=== PATIENT | female | born 1965 | race Two or more races ===

== ENCOUNTER 2022-08-01 23:08 | Emergency (ER) | payer OTHER ==
--- OUTSIDE RECORDS SUMMARY | 2022-08-01 23:13 | XMS REPORT | Continuity of Care Document ---
:1965 Author Organization [facility] t Address [address] [place] [address] Care Team Providers Name Role Phone TAYLOR VIDAL Primary Care Physician Unavailable TABITHA DE LEON Attending Clinician Unavailable Santosh Rosario MD Attending Clinician [phone] SANTOSH ROSARIO Attending Clinician Unavailable Taylor Vidal MD Attending Clinician Kelly Odom CMA Attending Clinician Unavailable TAYLOR VIDAL Attending Clinician Unavailable CORRIE SALEEM Attending Clinician Unavailable SHANNAN YU Attending Clinician Unavailable Stiven SMITH, Corrie Arvizu Attending Clinician [phone] Nitesh Adams Attending Clinician Nitesh Adams Admitting Clinician Payers Payer Name Policy Type Policy Number Effective Date Expiration Date Gordon blackmon [facility] [id number] 2020 00:00:00 SELECT/SELECT PLUS Problems Condition Condition Condition Status Onset Resolution Last Treating Co mments Source Name Details Category Date Date Treatment Clinician Date Primary Primary Disease Active 2021-[address] [facility] Center Type 2 Type 2 Disease Active 2021-06 BRIANNA Moore diabetes diabetes 2-08 [facility] mellitus mellitus 00:00: Medica l without without 00 Center complicati complicati on, on, without without long-term long-term current current use of use of insulin insulin Essential Essential Disease Active 2021-[address] [facility] hypertensi hypertensi 2-08 Kristina kes on on 00:00: Medical 00 [place] Acquired Acquired Disease Active 2021-[facility] hypothyroi hypothyroi 2- Kristina kes dism dism 00:00: Medical 00 [place] PAIN PAIN Diagnosis Active 2014-11-13 Mem oria Active 10-23 14:43:00 l 10/23/2014 00:00: Wang driver [address] Allergies, Adverse Reactions, Alerts Allergy Allergy Status Severity Reaction(s) Onset Inactive Treating Comm ents Source Name Type Date Date Clinician NO KNOWN Allergy Active [facility] Family History Family Member Diagnosis Comments Start Date Stop Date Source Natural brother Hyperlipidemia [facility] Natural brother Hypertension [facility] Natural daughter Diabetes [facility] Natural father Hyperlipidemia [facility] Natural father Hypertension [facility] Natural mother Hyperlipidemia [facility] Natural mother Hypertension [facility] Natural mother Liver disease [facility] Natural sister Diabetes [facility] Natural sister Hyperlipidemia [facility] Natural sister Hypertension [facility] Social History Social Habit Start Date Stop Date Quantity Comments Source Alcohol intake 2022-07-14 2022-07-14 Current [facility] 00:00:00 00:00:00 non-drinker of Medical Ce nter alcohol (finding) Sex Ass[birth year] At [birth year] F [facility] 00:00:00 00:00:00 [facility] Smoking Status Start Date Stop Date Source Social History [facility] Medications Ordered Filled Start Stop Current Ordering Indication Dosage Frequency Signature Comments Components Source Medication Medication Date Date Medication? Clinician (SIG) Name Name levothyroxi Yes TAKE [address] [facility] ne 1-26 TABLET BY Sri (SYNTHROID, 00:00: MOUTH Medic al LEVOTHROID) 00 EVERY Center 25 MCG MORNING ON tablet AN EMPTY STOMACH FOR 30 DAYS. pravastatin Yes 10mg QD Take [address] [facility] (PRAVACHOL) 1-11 tablet (10 Kristina kes 10 MG 00:00: mg total) Medical tablet 00 by mouth Center daily. pravastatin 2021-[address] [facility] (PRAVACHOL) 08-17-11 TABLET BY Kristina kes 10 MG 00:00: 00:00 MOUTH Medical tablet 00 :00 EVERY DAY Center metoprolol 2021-06- No [address] succinate 07-29 [facility] (TOPROL-XL) 16:32: 00:00 Medic al 25 MG 24 hr 09 :00 Center tablet pravastatin 2021-06- No 20mg QD Take [address] [facility] (PravachoL) 07-29 by mouth Stef es 20 MG 15:48: 00:00 daily. Medical tablet 57 :00 Center amitriptyli 2021-06- Yes 25mg QD Take [address] [facility] (ELAVIL) 07-29- tablet (25 L ukes 25 MG 00:00: 23:59 mg total) Medica l tablet 00 :00 by mouth Center nightly for 90 days. metoprolol 2021-06- Yes 25mg QD Take [address] [facility] succinate 07-29- tablet (25 Stef es (TOPROL-XL) 00:00: 23:59 mg total) Medical 25 MG 24 hr 00 :00 by mouth Cent er tablet daily for 90 days. metFORMIN 2021-06- Yes 500mg Take [address] [facility] (GLUCOPHAGE 07-29 tablet [facility] -XR) 500 MG 00:00: 23:59 (500 mg Me dical 24 hr 00 :00 total) by Center tablet mouth daily with dinner for 90 days. levothyroxi 2021-06- No 25ug Take [address] [facility] ne 07-29 tablet (25 [facility] (SYNTHROID, 00:00: 00:00 mcg total) Medical LEVOTHROID) 00 :00 by mouth Cent er 25 MCG Every tablet morning on an empty stomach for 90 days. pravastatin 2021-06- No 10mg QD Take [address] [facility] (PRAVACHOL) 07-29 tablet (10 L ukes 10 MG 00:00: 00:00 mg total) Medica l tablet 00 :00 by mouth Center daily for 90 days. amitriptyli 2021- No TAKE [address] [facility] ne (ELAVIL) 8-04 06- TABLET BY Kristina kes 25 MG 00:00: 00:00 MOUTH Medical tablet 00 :00 NIGHTLY Center FOR 30 DAYS. levothyroxi 2021- No TAKE [address] [facility] ne 7-25 12-08 TABLET BY Sri (SYNTHROID, 00:00: 00:00 MOUTH Medi jose LEVOTHROID) 00 :00 EVERY Center 25 MCG MORNING ON tablet AN EMPTY STOMACH FOR 30 DAYS. pravastatin 2021-2021- No TAKE [address] [facility] (PRAVACHOL) 7-21 12-08 TABLET BY Kristina chávezs 10 MG 00:00: 00:00 MOUTH Medical tablet 00 :00 EVERY DAY Center Moderna Yes 0.[address] [facility] [address] COVID-19 7-06 [facility] Vaccine, 08:51: Medical EUA, 22 Center (Moderna COVID-19 Vaccine, PF,) 100 mcg/0.5 mL Susp syringe melatonin Yes 6mg Take [address] [facility] (Mel[place]) 3 7-06 by mouth. Stef es mg Tab 08:49: Medical tablet 22 Center levothyroxi 2021- No TAKE [address] [facility] ne 6-17 07-25 TABLET BY Sri (SYNTHROID, 00:00: 00:00 MOUTH Medi jose LEVOTHROID) 00 :00 EVERY Center 25 MCG MORNING ON tablet AN EMPTY STOMACH FOR 30 DAYS. metFORMIN 2021- No 500mg Take [address] (GLUCOPHAGE 5-11 12-08 mg by Sri -XR) 500 MG 00:00: 00:00 mouth Medi jose 24 hr 00 :00 daily with Center tablet dinner. amitriptyli 2021- No 25mg QD Take [address] [facility] ne (ELAVIL) 4-20 08-15 tablet (25 L ukes 25 MG 00:00: 00:00 mg total) Medica l tablet 00 :00 by mouth Center nightly for 30 days. metFORMIN 2021- No 500mg Take [address] (GLUCOPHAGE 3-22 03-22 mg by Kristinakes ) 500 MG 16:23: 00:00 mouth 2 Medic al tablet 22 :00 (two) Center times daily with breakfast and dinner. pravastatin 2021-2021- No 10mg QD Take [address] [facility] (PRAVACHOL) 3-22 03-22 by mouth Stef es 10 MG 16:23: 00:00 daily. Medical tablet 22 :00 Center metoprolol 2021- No 25mg QD Take [address] [address] succinate 09-09-22 by mouth [facility]ukes (TOPROL-XL) 16:23: 00:00 daily. Med ical 25 MG 24 hr 22 :00 Center tablet pravastatin 2021- No 10mg QD Take [address] [facility] (PRAVACHOL) 09-09 07-21 tablet (10 L ukes 10 MG 00:00: 00:00 mg total) Medica l tablet 00 :00 by mouth Center daily for 90 days. metFORMIN 2021- No 500mg Take [address] [facility] (GLUCOPHAGE 09-09 06-20 tablet [facility]ukes ) 500 MG 00:00: 23:59 (500 mg Medic al tablet 00 :00 total) by Center mouth 2 (two) times daily with breakfast and dinner for 90 days. metoprolol 2021- No 25mg QD Take [address] [facility] succinate 09-09-20 tablet (25 Stef es (TOPROL-XL) 00:00: 23:59 mg total) Medical 25 MG 24 hr 00 :00 by mouth Cent er tablet daily for 90 days. levothyroxi 2021- No 25ug Take [address] [facility] ne 09-09-21 tablet (25 [facility] (Synthroid) 00:00: 23:59 mcg total) Medical 25 MCG 00 :00 by mouth Center tablet Every morning on an empty stomach for 30 days. amitriptyli 2021- No 25mg QD Take [address] [facility] ne (ELAVIL) 09-09 04-20 tablet (25 L ukes 25 MG 00:00: 00:00 mg total) Medica l tablet 00 :00 by mouth Center nightly for 30 days. Ibuprofen No Notes: Memori a 5-23 (Same as: l 03:12: Motrin) Wilbert 00 "Do Not Crush" Take with food. Ibuprofen No Notes: Memori a 5-23 (Same as: l 03:12: Motrin) Howell 00 "Do Not Crush" Take with food. Cefoxitin Yes Notes: Memori a 20 MG/ML - (Same As: l Injectable 17:00: Mefoxin) Her carter Solution 00 MEDICATION WASTE Product Size: 2000 mg Product Wasted: ___ mg Ketorolac No 4 days Memor ia 11-09 l 17:00: MEDICATION Howell 00 WASTE Product Size: 30 mg Product Wasted: ___ mg Cefoxitin Yes Notes: Memori a 20 MG/ML 11-09 (Same As: l Injectable 17:00: Mefoxin) Her carter Solution 00 MEDICATION WASTE Product Size: 2000 mg Product Wasted: ___ mg Ketorolac No 4 days Memor ia 11-09 l 17:00: MEDICATION Howell WASTE Product Size: 30 mg Product Wasted: ___ mg Morphine No Notes: Memoria 11-09 (Same l 16:02: as:MORPhin e Sulfate) Lorazepam No Notes: Memori a 11-09 (Same as: l 16:02: Ativan) Diphenhydra No Notes: Deonte kendall mine 11-09 (Same as: l 16:02: Benadryl) Racepinephr No Notes: Deonte kendall ine 11-09 (racepinep l 16:02: hrine *2.25% inh 0.5ml SOLN) (Same as:S2) Naloxone No Notes: Memoria 11-09 Same as l 16:02: Narcan Glycopyrrol No Notes: Deonte kendall ate 11-09 (Same as: l 16:02: Robinul) Dexamethaso No Notes: Deonte kendall ne 11-09 Concentrat l 16:02: ion: Howell 00 4mg/ml Ondansetron No Notes: Deonte kendall - (Same as: l 16:02: Zofran) MEDICATION WASTE Product Size: 4 mg Product Wasted: ___ mg Promethazin No 6.25 mg, Me moria e 11-09 25 mL, l 16:02: Route: 00 IVPB, Drug form: SOLN, ONCE, Dosing Weight 70, kg, PRN Nausea & Vomiting, Start date: 11/09/14 11:02:00 Albuterol No Notes: SEE Me moria 0.83 MG/ML 11-09 RT l Inhalant 16:02: DOCUMENTAT Her carter Solution 00 ION (Same as: Proventil) Ephedrine No Notes: Memori a - (Same as: l 16:02: ePHEDrine Sulfate) Calcium No 500 mL, Memoria Chloride 11-09 Rate: 125 l 0.0014 16:02: ml/hr, Howell MEQ/ML / Infuse Potassium over: 4 Chloride hr, Route: 0.004 IV, Dosing MEQ/ML / Weight 70 Sodium kg, Total Chloride Volume: 0.103 500, Start MEQ/ML / date: Sodium 11/09/14 Lactate 11:02:00, 0.028 Duration: MEQ/ML 30 day, Injectable Stop date: Solution 12/09/14 11:01:00 Fentanyl No Notes: Memoria 11-09 (Same as: l 16:02: Sublimaze) Preservati ve free. Oxycodone No Notes: Memori a 11-09 (Same as: l 16:02: Roxicodone ) Acetaminoph No Notes: Deonte kendall en 11-09 Infuse l 16:02: over 15 minutes Do not exceed 4gm/day of acetaminop hen MEDICATION WASTE Product Size: 1000 mg Product Wasted: ___ mg Labetalol No 10 mg, 2 Deonte kendall -22 mL, Route: l 16:02: IVP, Drug form: INJ, Q5Min, Dosing Weight 70, kg, PRN Elevated BP, Start date: 11/09/14 11:02:00, Duration: 5 doses or times, Stop date: Limited # of times esmolol No Notes: Memoria 11-09 (Same as: l 16:02: Brevibloc) Hydralazine No Notes: Deonte kendall -22 (Same as: l 16:02: Apresoline ) Push over 5 minutes Hydromorpho No Notes: Deonte kendall ne 5-22 Same as: l 16:02: Dilaudid Flumazenil No Notes: Memor ia - (Same as: l 16:02: Romazicon) Morphine No Notes: Memoria 5- (Same l 16:02: as:MORPhin Howell 00 e Sulfate) Lorazepam No Notes: Memori a -22 (Same as: l 16:02: Ativan) Diphenhydra No Notes: Deonte kendall mine - (Same as: l 16:02: Benadryl) Racepinephr No Notes: Deonte kendall ine 11-09 (racepinep l 16:02: hrine Wilbert 00 *2.25% inh 0.5ml SOLN) (Same as:S2) Naloxone No Notes: Memoria - Same as l 16:02: Narcan Glycopyrrol No Notes: Deonte kendall ate - (Same as: l 16:02: Robinul) Dexamethaso No Notes: Deonte kendall ne - Concentrat l 16:02: ion: 00 4mg/ml Ondansetron No Notes: Deonte kendall - (Same as: l 16:02: Zofran) MEDICATION WASTE Product Size: 4 mg Product Wasted: ___ mg Promethazin No 6.25 mg, Me moria e -22 25 mL, l 16:02: Route: Wilbert 00 IVPB, Drug form: SOLN, ONCE, Dosing Weight 70, kg, PRN Nausea & Vomiting, Start date: 11/09/14 11:02:00 Albuterol No Notes: SEE Me moria 0.83 MG/ML - RT l Inhalant 16:02: DOCUMENTAT Her carter Solution 00 ION (Same as: Proventil) Ephedrine No Notes: Memori a -22 (Same as: l 16:02: ePHEDrine Wilbert 00 Sulfate) Calcium No 500 mL, Memoria Chloride 11-09 Rate: 125 l 0.0014 16:02: ml/hr, Howell MEQ/ML / 00 Infuse Potassium over: 4 Chloride hr, Route: 0.004 IV, Dosing MEQ/ML / Weight 70 Sodium kg, Total Chloride Volume: 0.103 500, Start MEQ/ML / date: Sodium 11/09/14 Lactate 11:02:00, 0.028 Duration: MEQ/ML 30 day, Injectable Stop date: Solution 12/09/14 11:01:00 Fentanyl No Notes: Memoria - (Same as: l 16:02: Sublimaze) Preservati ve free. Oxycodone No Notes: Memori a - (Same as: l 16:02: Roxicodone ) Acetaminoph No Notes: Deonte kendall en - Infuse l 16:02: over 15 Howell 00 minutes Do not exceed 4gm/day of acetaminop hen MEDICATION WASTE Product Size: 1000 mg Product Wasted: ___ mg Labetalol No 10 mg, 2 Deonte kendall -22 mL, Route: l 16:02: IVP, Drug form: INJ, Q5Min, Dosing Weight 70, kg, PRN Elevated BP, Start date: 11/09/14 11:02:00, Duration: 5 doses or times, Stop date: Limited # of times esmolol No Notes: Memoria - (Same as: l 16:02: Brevibloc) Hydralazine No Notes: Deonte kendall -22 (Same as: l 16:02: Apresoline ) Push over 5 minutes Hydromorpho No Notes: Deonte kendall ne -22 Same as: l 16:02: Dilaudid Flumazenil No Notes: Memor ia -22 (Same as: l 16:02: Romazicon) Ondansetron Yes 4 mg = 1 Me moria 4 MG Oral 5-22 tab, PO, l Tablet 15:54: Q6H, PRN Wilbert [Zofran] 00 as needed for nausea/vom iting, # 6 tab, 4 Refill(s), other Acetaminoph Yes 1 to 2 Deonte kendall en 325 MG / 5-22 tabs, PO, l Oxycodone 15:54: Q4H, PRN Herm dionne Hydrochlori 00 as needed de 5 MG for pain, Oral Tablet # 40 tab, [Percocet 0 5/325] Refill(s), other Ondansetron Yes 4 mg = 1 Me moria 4 MG Oral 5-22 tab, PO, l Tablet 15:54: Q6H, PRN Wilbert [Zofran] 00 as needed for nausea/vom iting, # 6 tab, 4 Refill(s), other Acetaminoph Yes 1 to 2 Deonte kendall en 325 MG / 5-22 tabs, PO, l Oxycodone 15:54: Q4H, PRN Herm dionne Hydrochlori 00 as needed de 5 MG for pain, Oral Tablet # 40 tab, [Percocet 0 5/325] Refill(s), other Acetaminoph No Notes: Do M emoria en 325 MG / 5-22 not exceed l Oxycodone 15:52: 4gm/day of He rmann Hydrochlori 00 acetaminop de 5 MG hen. (Same Oral Tablet as: [Percocet Percocet-5 5/325] /325) Ondansetron No Notes: Deonte kendall 4 MG 5-22 (Same as: l Disintegrat 15:52: Zofran Herm dionne ing Tablet 00 ODT) Promethazin No Notes: Deonte kendall e 5-22 (Same as: l 15:52: Phenergan) Howell 00 Ondansetron No Notes: Deonte kendall 5-22 (Same as: l 15:52: Zofran) Howell 00 MEDICATION WASTE Product Size: 4 mg Product Wasted: ___ mg Morphine No Notes: Memoria 5-22 (Same l 15:52: as:MORPhin Howell 00 e Sulfate) Calcium No 1,000 mL, Memor ia Chloride 5-22 Rate: 125 l 0.002 15:52: ml/hr, Wilbert MEQ/ML / 00 Infuse Glucose 50 over: 8 MG/ML / hr, Route: Potassium IV, Dosing Chloride Weight 70 0.004 kg, Total MEQ/ML / Volume: Sodium 1,000, Chloride Start 0.147 date: MEQ/ML 11/09/14 Injectable 10:52:00, Solution Duration: 30 day, Stop date: 12/09/14 10:51:00 Acetaminoph No Notes: Do M emoria en 325 MG / 5-22 not exceed l Oxycodone 15:52: 4gm/day of He rmann Hydrochlori 00 acetaminop de 5 MG hen. (Same Oral Tablet as: [Percocet Percocet-5 5/325] /325) Ondansetron No Notes: Deonte knedall 4 MG 5-22 (Same as: l Disintegrat 15:52: Zofran Herm dionne ing Tablet 00 ODT) Promethazin No Notes: Deonte kendall e 5-22 (Same as: l 15:52: Phenergan) Wilbert 00 Ondansetron No Notes: Deonte kendall 5-22 (Same as: l 15:52: Zofran) Howell 00 MEDICATION WASTE Product Size: 4 mg Product Wasted: ___ mg Morphine No Notes: Memoria 5-22 (Same l 15:52: as:MORPhin Wilbert 00 e Sulfate) Calcium No 1,000 mL, Memor ia Chloride 5-22 Rate: 125 l 0.002 15:52: ml/hr, Wilbert MEQ/ML / 00 Infuse Glucose 50 over: 8 MG/ML / hr, Route: Potassium IV, Dosing Chloride Weight 70 0.004 kg, Total MEQ/ML / Volume: Sodium 1,000, Chloride Start 0.147 date: MEQ/ML 11/09/14 Injectable 10:52:00, Solution Duration: 30 day, Stop date: 12/09/14 10:51:00 Lactated No 500 mL, Memori a Ringers IV 5-22 Rate: 50 l 500 mL 12:20: ml/hr, Wilbert 00 Infuse over: 10 hr, Route: IV, Dosing Weight 70 kg, Total Volume: 500, Start date: 11/09/14 7:20:00, Duration: 30 day, Stop date: 12/09/14 7:19:00 lidocaine No Notes: Memori a 1% 5-22 (Same as: l 12:20: Xylocaine) Lactated No 500 mL, Memori a Ringers IV 5-22 Rate: 50 l 500 mL 12:20: ml/hr, Infuse over: 10 hr, Route: IV, Dosing Weight 70 kg, Total Volume: 500, Start date: 11/09/14 7:20:00, Duration: 30 day, Stop date: 12/09/14 7:19:00 lidocaine No Notes: Memori a 1% 5-22 (Same as: l 12:20: Xylocaine) Pyridium No Notes: Memoria 5-18 Give with l 17:30: meals. (Same as: Pyridium) Pyridium No Notes: Memoria 5-18 Give with l 17:30: meals. (Same as: Pyridium) Immunizations Ordered Immunization Filled Immunization Date Status Commen ts Source Name Name Influenza, High Dose 2022-02-[address] [facility] [facility] MRNA (PF) 18yr+ 00:00:00 Medical C enter (Moderna)([id number]) Influenza, High Dose 2021-04-[address] [facility] 2020-10-[address] [facility] MRNA (PF) 18yr+ 00:00:00 [facility] C [facility]Modern[facility][id number][facility] [facility] MRNA (PF) 18yr+ 00:00:00 Medical C enter (Moderna)([id number]) Vital Signs Vital Name Observation Time Observation Value Comments Source HEIGHT 2022-07-14 16:16:00 157.5 cm WEIGHT 2022-07-14 16:16:00 71.215 kg HEIGHT 2022-07-14 16:16:00 157.5 cm WEIGHT 2022-07-14 16:16:00 71.215 kg HEIGHT 2022-05-28 15:50:00 157.5 cm WEIGHT 2022-05-28 15:50:00 72.122 kg HEIGHT 2022-05-28 15:50:00 157.5 cm WEIGHT 2022-05-28 15:50:00 72.122 kg HEIGHT 2021-12-24 08:48:00 157.5 cm WEIGHT 2021-12-24 08:48:00 76.658 kg HEIGHT 2021-12-24 08:48:00 157.5 cm WEIGHT 2021-12-24 08:48:00 76.658 kg HEIGHT 2021-09-09 14:51:00 157.5 cm WEIGHT 2021-09-09 14:51:00 76.658 kg HEIGHT 2021-09-09 14:51:00 157.5 cm WEIGHT 2021-09-09 14:51:00 76.658 kg HEIGHT 2021-08-28 15:21:00 157.5 cm WEIGHT 2021-08-28 15:21:00 75.297 kg HEIGHT 2021-08-28 15:21:00 157.5 cm WEIGHT 2021-08-28 15:21:00 75.297 kg Systolic blood 2022-07-14 16:16:00 131 mm[Hg] [facility] Diastolic blood 2022-07-14 16:16:00 84 mm[Hg] [facility] Heart rate 2022-07-14 16:16:00 57 /min [facility] Body temperature 2022-07-14 16:16:00 36.78 [facility] Body height 2022-07-14 16:16:00 157.5 cm [facility] Body weight 2022-07-14 16:16:00 71.215 kg [facility] BMI 2022-07-14 16:16:00 28.72 kg/m2 [facility] Oxygen saturation in 2022-07-14 16:16:00 98 /min [facility] Arterial blood by Medical Ce nter Pulse oximetry Systolic (mm Hg) 2014-11-10 13:00:00 Deonte Atkins Diastolic (mm Hg) 2014-11-10 13:00:00 Nalini Atkins Respitory Rate 2014-11-10 13:00:00 Luanne Holder Heart Rate 2014-11-10 13:00:[facility] Oral (F) 2014-11-10 13:00:00 98.6 F [facility] Heart Rate 2014-11-10 08:50:00 [facility] Systolic (mm Hg) 2014-11-10 08:50:00 Deonte rial Wilbert Diastolic (mm Hg) 2014-11-10 08:50:00 Mem orial Howell Temperature Oral (F) 2014-11-10 08:50:00 98.0 F [facility] Respitory Rate 2014-11-10 08:50:00 Memori al Wilbert Systolic (mm Hg) 2014-11-10 04:40:00 Deonte rial Wilbert Diastolic (mm Hg) 2014-11-10 04:40:00 Mem orial Wilbert Respitory Rate 2014-11-10 04:40:00 Memori al Howell Heart Rate 2014-11-10 04:40:00 [facility] Temperature Oral (F) 2014-11-10 04:40:00 98.6 F [facility] Weight 2014-11-05 16:52:00 [facility] Height 2014-11-05 16:52:00 160.02 cm [facility] BMI Calculated 2014-11-05 16:52:00 [facility] Procedures Procedure Date / Time Performing Clinician Source Performed MM DIGITAL MAMMO 2022-07-29 14:40:00 Santosh Rosaroi [facility] s DIAGNOSTIC WITH SHAYE LEFT [facility] POCT GLUCOSE 2022-05-28 16:35:00 Taylor Vidal [facility] POCT GLYCATED HEMOGLOBIN, 2022-05-28 16:33:00 Taylor Vidal [facility] US BREAST LEFT 2022-01-22 11:11:00 Corrie Saleem [facility] MM DIGITAL MAMMO 2022-01-22 10:12:00 Corrie Saleem [facility]ST[facility] MM DIGITAL MAMMO SCREEN 2022-01-14 15:35:[address] [facility] WITH SHAYE BILATERAL [facility] er CBC W/PLT COUNT & AUTO 2021-09-04 09:13:[address] [facility] COMPREHENSIVE METABOLIC 2021-09-04 09:13:[address] [facility] PANEL [facility] LIPID PANEL 2021-09-04 09:13:00 Taylor Vidal [facility] HEMOGLOBIN A1C 2021-09-04 09:13:00 Taylor Vidal [facility] TSH 2021-09-04 09:13:00 Taylor Vidal [facility] Laparotomy 2008-06-21 00:00:00 [facility] Plan of Care Planned Activity Planned Date Details Comments Source Future Scheduled 2024-09-04 Lipid panel (procedure) [facility] Test 00:00:00 [code = [id number]] Medical Ce nter Future Scheduled 2024-07-29 Screening for malignant [facility] Test 00:00:00 neoplasm of breast Medical C enter (procedure) [code = 729957839] Future Scheduled 2023-07-[address] [facility] Test 00:00:00 Counseling and Medical Cente r Screening (12+) [code = Tobacco Cessation Counseling and Screening (12+)] Future Scheduled 2022-11-[address] [facility] Test 00:00:00 measurement (procedure) [facility] [code = 00432502] Future Scheduled 2022-06-[address] [facility] Test 00:00:00 (12+) [code = [facility] Center DEPRESSION SCREENING (12+)] Future Scheduled 2021-09-15 COVID-19 VACCINE (4 - [facility] Test 00:00:00 Booster for [facility] Center series) [code = COVID-19 VACCINE (4 - Booster for [facility] series)] Future Scheduled 2013-12-09 SHINGLES VACCINES ([address] [facility] Test 00:00:00 2) [code = SHINGLES [facility] VACCINES (1 of 2)] Future Scheduled 1984-12-09 Screening for malignant [facility] Test 00:00:00 neoplasm of cervix Medical C enter (procedure) [code = 976845174] Future Scheduled 1982-12-09 DTAP/TDAP/TD VACCINES [facility] Test 00:00:00 (1 - Tdap) [code = Medical C enter DTAP/TDAP/TD VACCINES (1 - Tdap)] Future Scheduled 1981-12-09 HEPATITIS C SCREENING [facility] Test 00:00:00 [code = HEPATITIS C Medical Center SCREENING] Future Scheduled 1973-12-09 DIABETIC EYE EXAM [code [facility] Test 00:00:00 = DIABETIC EYE EXAM] Medical Center Future Scheduled 1973-12-[address] [facility] Test 00:00:00 examination Medical Center (regime/therapy) [code = 897992224] Future Scheduled 1973-12-09 Urine screening for [facility] Test 00:00:00 protein (procedure) Medical Center [code = [id number]] Future Scheduled 1969-12-[address] [facility] Test 00:00:00 0-64 YRS (1 - PCV) Medical C enter [code = PNEUMOCOCCAL VACCINE 0-64 YRS (1 - PCV)] Future Scheduled 1963 CT Colonography (combo) [facility] Test 00:00:00 [code = CT Colonography [facility] (combo)] Future Scheduled 1963 Screening for malignant [facility] Test 00:00:00 neoplasm of colon Medical Ce nter (procedure) [code = 974915603] Future Scheduled 1963 Screening for malignant [facility] Test 00:00:00 neoplasm of colon Medical Ce nter (procedure) [code = 391737078] Future Scheduled 1963 Screening for malignant [facility] Test 00:00:00 neoplasm of colon Medical Ce nter (procedure) [code = 740451273] Future Scheduled 1963 Screening for malignant [facility] Test 00:00:00 neoplasm of colon Medical Ce nter (procedure) [code = [id number]] Future Scheduled 1965 Sigmoidoscopy [code = [facility] 00:[facility]:00 Sigmoidoscopy] [facility] Encounters Start End Encounter Admission Attending Care Care Encounter Source Date/Time Date/Time Type Type Clinicians Facility Department ID 2021-01-06 Outpatient NITESH [facility] [id number] [place] 13:26:47 [facility] 2020-12-[address] [facility] [id number] [place] 15:36:42 [facility] 2022-07-29 2022-07-29 [facility] Marlene [facility] [id number] 14:28:47 23:59:[address] [facility] 2022-07-29 2022-07-29 Outpatient EL ROSARIO, [facility] [id number] [facility] 14:28:47 23:59:00 [facility] 2022-07-29 2022-07-29 Hospital Marlene, [facility] [id number] [facility] 14:28:27 23:59:[address] [facility] 2022-07-29 2022-07-29 Outpatient EL MARLENE, [facility] [id number] [facility] 14:28:27 23:59:00 [facility] 2022-07-28 2022-07-28 Outside Young, Taylor [facility] [id number] 00:00:00 00:00:00 Orders [facility] 2022-07-16 2022-07-16 RefTaylor Lay [facility] [id number] 00:00:00 00:00:00 [facility] 2022-07-15 2022-07-15 Orders Marlene, [facility] [id number] 00:00:00 00:00:[address] [facility] 2022-07-14 2022-07-14 Outpatient EL ROSARIO, [facility] [id number] 16:04:04 16:51:22 [facility] 2022-07-14 2022-07-14 Office Rosario, [facility] [id number] 15:30:00 16:51:[address] [facility] 2022-07-01 2022-07-01 Orders Odom, [facility] [id number] 00:00:00 00:00:[address] [facility] 2022-06-30 2022-06-30 Outpatient EL YOUNG, TAYLOR [facility] [id number] 00:00:00 00:00:00 [facility] 2022-06-16 2022-06-16 Refill Young, Taylor [facility] [id number] 00:00:00 00:00:00 [facility] 2022-05-28 2022-05-28 Office Young, Taylor [facility] [id number] 16:00:00 16:45:16 Visit [facility] 2022-05-28 2022-05-28 Outpatient SHIRIN VIDAL [facility]AYLOR [facility] [id number] 15:39:04 16:45:16 [facility] 2022-05-22 2022-05-22 Refmelvin Young, Taylor [facility] [id number] 00:00:00 00:00:00 [facility] 2022-05-06 2022-05-06 Refill Young, Taylor [facility] [id number] 00:00:00 00:00:00 [facility] 2022-04-14 2022-04-14 Refmelvin Vidal Taylor [facility] [id number] 00:00:00 00:00:00 [facility] 2022-03-25 2022-03-25 Outpatient SHIRIN SALEEM [facility] [id number] 00:00:00 00:00:00 [facility] 2022-03-04 2022-03-04 Outpatient SHIRIN ASLEEM [facility] [id number] [address] 00:00:00 00:00:00 [facility] 2022-02-25 2022-02-25 Outpatient SHIRIN YU [facility] [id number] 00:00:00 00:00:00 [facility] 2022-02-01 2022-02-01 Refmelvin Vidal Taylor [facility] [id number] 00:00:00 00:00:00 [facility] 2022-01-28 2022-01-28 Outpatient EL STIVEN [facility] [id number] 00:00:00 00:00:00 [facility] 2022-01-27 2022-01-27 Trini Saleem [facility] [id number] 00:00:00 00:00:00 [facility] [place] 2022-01-22 2022-01-22 [facility], [facility] [id number] 09:47:03 23:59:00 Encounter [facility] 2022-01-22 2022-01-22 Outpatient STIVEN, [facility] [id number] [facility] 09:47:03 23:59:00 [facility] 2022-01-22 2022-01-22 [facility] [id number] 09:45:45 09:46:00 Encounter [facility] 2022-01-22 2022-01-22 Outpatient SHIRIN SALEEM, [facility] [id number] [facility] 09:45:45 09:46:00 [facility] 2022-01-21 2022-01-21 Orders Stiven [facility] [id number] 00:00:00 00:00:00 Only [facility] [place] 2022-01-21 2022-01-21 [place] [facility] [id number] 00:00:00 00:00:00 [facility] [place] 2022-01-21 2022-01-21 [facility] [id number] 00:00:00 00:00:00 Orders [facility] [place] 2022-01-14 2022-01-14 [facility] [id number] 14:50:13 23:59:00 Encounter [facility] 2022-01-14 2022-01-14 Outpatient SHIRIN SALEEM [facility] [id number] [facility] 14:50:13 23:59:00 [place] 2022-01-13 2022-01-13 Outpatient SHIRIN YU [facility] [id number] 00:00:00 00:00:00 [facility] 2022-01-10 2022-01-10 Refill Young, Taylor [facility] [id number] 00:00:00 00:00:00 [facility] 2022-01-07 2022-01-07 Refill Young, Taylor [facility] [id number] 00:00:00 00:00:00 [facility] 2022-01-05 2022-01-05 Refill Young, Taylor [facility] [id number] 00:00:00 00:00:00 [facility] 2021-12-24 2021-12-24 Office Young, Taylor Leigh [facility] [id number] 09:00:00 09:28:47 Visit St[facility] 2021-12-24 2021-12-24 Outpatient EL SCHAKETT, [facility] [id number] 08:35:46 09:28:47 [facility] 2021-12-18 2021-12-18 Outpatient EL SCHAKETT, [facility] [id number] 00:00:00 00:00:00 [facility] 2021-11-12 2021-11-12 Outpatient EL SCHAKETT, [facility] [id number] 00:00:00 00:00:00 [facility] 2021-10-15 2021-10-15 Outpatient WHITKETT, [facility] [id number] 00:00:00 00:00:00 [facility] 2021-10-08 2021-10-08 Orders Lei [facility] [id number] 00:00:00 00:00:[address] [facility] 2021-09-09 2021-09-09 Outpatient TAYLOR VIDAL [facility] [id number] 14:40:27 16:36:10 [facility] 2021-09-09 2021-09-09 Office Taylor Vidal [facility] [id number] 14:40:00 16:36:10 Visit [facility] 2021-09-09 2021-09-09 Travel [facility] [id number] [facility] 00:00:00 00:00:00 [facility] 2021-08-28 2021-08-28 Outpatient YOUNG TAYLOR [facility] [id number] 15:05:00 16:25:39 [facility] 2021-08-28 2021-08-28 Office Taylor Vidal [facility] [id number] 15:00:00 16:25:39 Visit [facility] 2021-08-28 2021-08-28 Travel [facility] [id number] [facility] 00:00:00 00:00:00 [facility] 2014-11-09 2014-11-10 [id number] [facility] 17:23:00 15:00:00 Observatio juliocesar AuHowell The 00 l n Patient [facility] 2014-11-09 2014-11-10 [id number] 17:23:00 15:00:00 Observatio juliocesar Howell The 00 l n Patient [facility] 2014-11-09 2014-11-10 Outpatient Bryan, [id number]. [id number]. [id number] 12:23:00 10:00:00 Nitesh Sung [id number] 01 Results Test Description Test Time Test Comments Results Result Sour e Comments MM, DIGITAL MAMMO, 2022-07-29 Reason for DIAGNOSTIC, WITH 15:25:00 Exam:->abnormal SHAYE, LEFT mammogram [facility] INCLUDING CAD Location: For [facility] CENTERName: Only->JOSE FLOYD [place] : 1965 Sex: Hospital F MR N#: [id number] - MM, DIGITAL MAMMO, DIAGNOSTIC, WITH SHAYE, LEFT INCLUDING CAD UNILATERAL LEFT DIGITAL DIAGNOSTIC MAMMOGRAM 3D/2D WITH CAD: 07/29/2022omparison is made to exams dated: 01/14/2022 mammogram and 01/22/2022 mammogram - [facility]. The tissue of left breast is heterogeneously dense. This may lower the sensitivity of mammography. Tomosynthesis 3D imaging of the breast was also performed. Current study was also evaluated with a Computer Aided Detection (CAD) system. Postoperative changes in the left breast. There are loosely grouped layering and round calcifications in the left breast central to the nipple anterior to middle depth, measuring up to 6 cm, terminating 0.6 cm posterior to the nipple. IMPRESSION: PROBABLY BENIGN The calcifications in the left breast are probably benign. A follow-up bilateral diagnostic mammogram (with magnification views) and a possible ultrasound (if needed) in 5 months (due December 2022 at the time of annual exam) is recommended to demonstrate stability. Oneyda Hurst M.D. as/:07/29/2022 15:25:26 Followup Recommended [facility] 3 Mammogram BI-RADS: 3 Probably benign glucose 2022-05-28 16:35:00 Test Item Value Reference Range Interpretation Comme nts POC Glucose (test code = 1672842) 108 mg/dL 70-110 [facility] glycated hemoglobin, [id number] 16:33:00 Test Item Value Reference Range Interpretation Comments Hemoglobin A1C (test code = 4548-4) 6.6 % [facility], U/S, BREAST, UNILATERAL, [id number] 11:50:00 Diagnostic workup per radiologist?->YesReason for Exam:->[facility] : 1965 Sex: FMRN#: [id number] - MM, U/S, BREAST, UNILATERAL, LEFT LIMITED ULTRASOUND OF LEFT BREAST AND AXILLA: 01/22/2022omparison is made to exam dated: 01/14/2022 mammogram - [facility]. The tissue of left breast is heterogeneously dense. This may lower the sensitivity of mammography. Tomosynthesis 3D imaging of the breast was also performed. Current study was also evaluatedwith a Computer Aided Detection (CAD) system. Postoperative changes in the left breast. There are loosely grouped layering and round calcifications in the left breast central to the nipple anterior to middle depth, measuring up to 6 cm, terminating 0.6 cm posterior to the nipple. No other significant masses or calcifications are seen in the breast. Color flow and real-time ultrasound of the left breast (all four quadrants and retroareolar region) and axilla was performed. There is no suspicious solid or cystic mass identified. There are no abnormal appearing axilla lymph nodes. IMPRESSION: PROBABLYBENIGN The calcifications in the left breast are probably benign. A follow-up left diagnostic mammogram (magnification views) and a possible ultrasound (if needed) in 6 months is recommended to demonstrate stability. These findings and recommendations were discussed with the patient.Oneyda Hurst M.D. as/:01/22/2022 11:50:27 Milking Machine Operator: Karen Banks [facility] Ultrasound BI-RADS: 3 Probably benign [id number] Electronically signed by: Citlalli TAM 01/22/2022 11:50 AM MM, DIGITAL MAMMO, DIAGNOSTIC, WITH SHAYE, LEFT INCLUDING [id number] 11:49:00 Diagnostic workup per radiologist?->YesReason for Exam:->Abnormal [facility]ogram[facility] : 1965 Sex: FMRN#: [id number] - MM, DIGITAL MAMMO, DIAGNOSTIC, WITH SHAYE, LEFT INCLUDING CAD UNILATERAL LEFT DIGITAL DIAGNOSTIC MAMMOGRAM 3D/2D WITH CAD: 01/22/2022omparison is made to exam dated: 01/14/2022 mammogram - [facility]. The tissue of left breast is heterogeneously dense. This may lower the sensitivity of mammography. Tomosynthesis 3D imaging of the breast was also pe rformed. Current study was also evaluated with a Computer Aided Detection (CAD) system. Postoperative changes in the left breast. There are loosely grouped layering and round calcifications in the leftbreast central to the nipple anterior to middle depth, measuring up to 6 cm, terminating 0.6 cm posterior to the nipple. No other significant masses or calcifications are seen in the breast. Color flowand real-time ultrasound of the left breast (all four quadrants and retroareolar region) and axilla was performed. There is no suspicious solid or cystic mass identified. There are no abnormal appearing axilla lymph nodes. IMPRESSION: PROBABLY BENIGN The calcifications in the left breast are probably benign. A follow-up left diagnostic mammogram (magnification views) and a possible ultrasound (if needed) in 6 months is recommended to demonstrate stability. These findings and recommendations were discussed with the patient. Oneyda Hurst M.D. as/:01/22/2022 11:49:32 Followup Recommended BiRad 3 Mammogram BI-RADS: 3 Probably benign MM, DIGITAL, MAMMO, SCREENING, WITH SHAYE, BILATERAL INCLUDING [id number] 16:16:00Diagnostic workup per radiologist?->YesReason for Exam:->screening mamm[facility] : 1965 Sex: FMRN#: [id number] - MM, DIGITAL, MAMMO, SCREENING, WITH SHAYE, BILATERAL INCLUDING CAD BILATERAL DIGITAL SCREENING MAMMOGRAM 3D/2D WITH CAD: 01/14/2022No prior digital images are available for comparison. Lack of availability of prior films for comparison reduces the sensitivity of mammography. The tissue of both breasts is heterogeneously dense. This may lower the sensitivity of mammography. Tomosynthesis 3D imaging of the breast was also performed. Current study was also evaluated with a Computer Aided Detection (CAD) system. Broad areas of distortion are noted from the previous bilateral breast reduction. Postoperative changes in the right breast. Postoperative changes in the left breast. There are multiple calcifications in the left breast central to the nipple anterior depth. No other significant masses, calcifications, or other findings are seen in either breast. IMPRESSION: INCOMPLETE: NEEDS ADDITIONAL IMAGING EVALUATIONThe multiple calcifications in the left breast are indeterminate. Magnification views as well as a diagnostic mammogram and ultrasound are recommended. Oneyda Hurst M.D. as/:01/19/2022 16:16:22 Additional Imaging Needed BiRad 0 Mammogram BI-RADS: 0 Indeterminate Comprehensive metabolic [id number] 14:11:00 Test Item Value Reference Range Interpretation Comments Glucose, Serum (test 129 mg/dL 65-99 H code = 20101021) BUN (test code = 11 mg/dL 6-24 20101022) Creatinine, Serum 0.76 mg/dL 0.57-1.00 (test code = 20101114) EGFR (test code = 91 mL/min/1.73 >59 [id number]) BUN/Creatinine Ratio 14 9-23 (test code = 0632711) Sodium, Serum (test 142 mmol/L 134-144 code = 20101107) Potassium, Serum 5.7 mmol/L 3.5-5.2 H (test code = 20101106) Chloride, Serum (test 107 mmol/L 96-106 H code = 20101108) Carbon Dioxide, Total 23 mmol/L 20-29 (test code = ) Calcium, Serum (test 9.8 mg/dL 8.7-10.2 code = 20101019) Protein, Total, Serum 6.8 g/dL 6.0-8.5 (test code = 20101026) Albumin, Serum (test 4.3 g/dL 3.8-4.9 code = 20101027) Globulin, Total (test 2.5 g/dL 1.5-4.5 code = ) A/G Ratio (test code 1.7 1.2-2.2 = ) Bilirubin, Total 0.4 mg/dL 0.0-1.2 (test code = 20101028) Alkaline Phosphatase, 113 See_Comment [Auto mated S (test code = message] The 6768-6) system which generated this result transmitted reference range : 44 - 121 IU/L. The reference range was not used to interpr et this result as normal/abnormal . AST (SGOT) (test code 19 See_Comment [Auto mated = 20101101) message] The system which generated this result transmitted reference range : 0 - 40 IU/L. Th e reference range was not used to interpret this result as normal/abnormal . ALT (SGPT) (test code 18 See_Comment [Auto mated = ) message] The system which generated this result transmitted reference range : 0 - 32 IU/L. e reference range was not used to interpret this result as normal/abnormal . EVER (test code = EVER) Performed at: [facility] [id number] Director: Clayton Perez MD, Phone: [phone] Lab Interpretation Abnormal (test code = 52304-5) [facility] [id number] 14:11:00 Test Item Value Reference Range Interpretation Comments Cholesterol, Total (test 203 mg/dL 100-199 H code = 2093-3) Triglycerides (test code 154 mg/dL 0-149 H = 2571-8) HDL Cholesterol (test 56 mg/dL >39 code = 2085-9) VLDL Cholesterol Jose 27 mg/dL 5-40 (test code = 56270-9) LDL Calculated (test code 120 mg/dL 0-99 H = 23918-0) EVER (test code = EVER) Performed at: [facility] [id number] Director: Clayton Perez MD, Phone: [phone] Lab Interpretation (test Abnormal code = 62817-8) [facility] [id number] 14:11:00 Test Item Value Reference Range Interpretation Comments Hemoglobin A1c (test 6.8 % 4.8-5.6 H Predia betes: code = 4548-4) 5.7 - 6.4 Diabetes: >6.4 Glycemic control for adults with diabetes: <7.0 EVER (test code = EVER) Performed at: [facility] [id number] Director: Clayton Perez MD, Phone: [phone] Lab Interpretation Abnormal (test code = 46139-8) [facility]22-[facility] 14:11:00 Test Item Value Reference Range Interpretation Comments TSH (test code 3.870 See_Comment [Automated m essage] = ) The system [employer] h generated this result transmit ian reference range : 0.450 - 4.50 uI U/mL. The reference r karli was not used to interpret this result as normal/abnormal . EVER (test code Performed at: 01 - = EVER) [facility] [address]ws[address] [place], [place] [id number] Director: Clayton Perez MD, Phone: [phone] [facility] + automated [id number] 14:11:00 Test Item Value Reference Range Interpretation Comments WBC (test code = 8.0 See_Comment [Automated ) message] The system which generated this result transmitted reference range : 3.4 - 10.8 x10E3/uL. The reference range was not used to interpret this result as normal/abnormal . RBC (test code = 4.76 See_Comment [Automated 9-8) message] The system which generated this result transmitted reference range : 3.77 - 5.28 x10E6/uL. The reference range was not used to interpret this result as normal/abnormal . Hemoglobin (test code 14.1 g/dL 11.1-15.9 = ) Hematocrit (test code 43.1 % 34.0-46.6 = ) MCV (test code = 91 fL 79-97 ) MCH (test code = 29.6 pg 26.6-33.0 ) MCHC (test code = 32.7 g/dL 31.5-35.7 ) RDW (test code = 12.7 % 11.7-15.4 ) Platelets (test code 299 See_Comment [Autom ated = ) message] The system which generated this result transmitted reference range : 150 - 450 x10E3/uL. The reference range was not used to interpret this result as normal/abnormal . % Neutros (test code 44 % Not Estab. = ) % Lymphs (test code = 45 % Not Estab. ) % Monos (test code = 8 % Not Estab. ) % Eos (test code = 2 % Not Estab. ) % Baso (test code = 1 % Not Estab. ) # Neutros (test code 3.5 See_Comment [Autom ated = ) message] The system which generated this result transmitted reference range : 1.4 - 7.0 x10E3/uL. The reference range was not used to interpret this result as normal/abnormal . # Lymphs (test code = 3.7 See_Comment H [Auto mated ) message] The system which generated this result transmitted reference range : 0.7 - 3.1 x10E3/uL. The reference range was not used to interpret this result as normal/abnormal . # Monos (test code = 0.6 See_Comment [Autom ated ) message] The system which generated this result transmitted reference range : 0.1 - 0.9 x10E3/uL. The reference range was not used to interpret this result as normal/abnormal . # Eos (test code = 0.1 See_Comment [Automat ed ) message] The system which generated this result transmitted reference range : 0.0 - 0.4 x10E3/uL. The reference range was not used to interpret this result as normal/abnormal . Baso (Absolute) (test 0.0 See_Comment [Auto mated code = ) message] The system which generated this result transmitted reference range : 0.0 - 0.2 x10E3/uL. The reference range was not used to interpret this result as normal/abnormal . % Immature Grans 0 % Not Estab. (test code = ) # Immature Grans 0.0 See_Comment [Automated (test code = ) messag e] The system which generated this result transmitted reference range : 0.0 - 0.1 x10E3/uL. The reference range was not used to interpret this result as normal/abnormal . EVER (test code = VEER) Performed at: [address] [place] [id number] Director: Clayton Perez MD, Phone: [phone] Lab Interpretation Abnormal (test code = 45388-6) [facility], [facility]ST, 2 [id number] 02:19:00Reason for Exam:->COUGHFINAL REPORT INDICATION: COUGH COMPARISON: None TECHNIQUE: Frontal and lateral views of the chest. FINDINGS: Lungs and pleura: Clear lungs. No effusion.Heart and mediastinum: Normal heart size. Unremarkable mediastinal contours.Osseous structures: No acute abnormality. Mild thoracic spondylosis.Additional findings: None. IMPRESSION: No acute intrathoracic abnormality. Signed: Moncho Cueva MDReport Verified Date/Time: 06/10/2019 02:19:34 [employer] [id number] 17:45:00 Test Item Value Reference Range Interpretation Comments Antibody Scrn (test Negative (11/05/14 code = Antibody Scrn) 12:45 PM) [facility] [employer] [id number] 17:45:00 Test Item Value Reference Range Interpretation Comments ABO/Rh (test code = ABO/Rh) O NEG [facility] [id number] 17:45:00 Test Item Value Reference Range Interpretation Comments MPV (test code = MPV) 8.9 7.4-10.4 [facility] [id number] 17:45:00 Test Item Value Reference Range Interpretation Comments Hct (test code = Hct) 39.2 36.0-48.0 [facility] [id number] 17:45:00 Test Item Value Reference Range Interpretation Comments MCH (test code = MCH) 28.3 pg 27.0-31.0 [facility] [id number] 17:45:00 Test Item Value Reference Range Interpretation Comments MCV (test code = MCV) 87.9 80.0-98.0 [facility]zuc[facility]fwVXKSASAIHM4990-52-27 17:45:00 Test Item Value Reference Range Interpretation Comments Platelet (test code = Platelet) 315 133-450 [facility] HospitalO[id number] 17:45:00 Test Item Value Reference Range Interpretation Comments RDW (test code = RDW) 16.6 11.5-14.5 [facility] [id number] 17:45:00 Test Item Value Reference Range Interpretation Comments MCHC (test code = MCHC) 32.2 32.0-36.0 [facility] H[id number] 17:45:00 Test Item Value Reference Range Interpretation Comments WBC (test code = WBC) 8.1 3.7-10.4 [facility] [id number] 17:45:00 Test Item Value Reference Range Interpretation Comments RBC (test code = RBC) 4.46 4.20-5.40 [id number] 17:45:00 Test Item Value Reference Range Interpretation Comments Hgb (test code = Hgb) 12.6 12.0-16.0 [facility] [id number] 17:45:00 Test Item Value Reference Range Interpretation Comments Basophils # (test code 0.0 See_Comment [Aut omated message] The = Basophils #) system which generated this result tra nsmitted reference range : <=0.2. The reference r karli was not used to int erpret this result as normal/abnormal . [facility] WorthTintjyrVBQMGJEXNR3181-27-40 17:45:00 Test Item Value Reference Range Interpretation Comments Lymphocytes # (test code = Lymphocytes 2.1 1.0-5.5 #) [facility] WorthJvrogtoUOMOCLDVDL7633-92-27 17:45:00 Test Item Value Reference Range Interpretation Comments Monocytes # (test code 0.6 See_Comment [Aut omated message] The = Monocytes #) system which generated this result tra nsmitted reference range : <=0.8. The reference r karli was not used to int erpret this result as normal/abnormal . [facility] WorthUrxwdrdDZHIDBKLVH7281-44-49 17:45:00 Test Item Value Reference Range Interpretation Comments Eosinophils # (test code 0.1 See_Comment [A utomated message] The = Eosinophils #) system whic h generated this result tra nsmitted reference range : <=0.5. The reference r karli was not used to int erpret this result as normal/abnormal . [facility] [id number] 17:45:00 Test Item Value Reference Range Interpretation Comments Antibody Scrn (test Negative (11/05/14 code = Antibody Scrn) 12:45 PM) [facility] WorthOxlukbzVUPVLZPGKW5422-12-97 17:45:00 Test Item Value Reference Range Interpretation Comments Eosinophils (test code = 1.0 See_Comment [A utomated message] The Eosinophils) system which ge nerated this result tra nsmitted reference range : <=4.0. The reference r karli was not used to int erpret this result as normal/abnormal . [facility] [id number] 17:45:00 Test Item Value Reference Range Interpretation Comments Basophils (test code = 0.1 See_Comment [Aut omated message] The Basophils) system which ge nerated this result tra nsmitted reference range : <=1.0. The reference r karli was not used to int erpret this result as normal/abnormal . [id number] 17:45:00 Test Item Value Reference Range Interpretation Comments Segs-Bands # (test code = Segs-Bands #) 5.4 1.5-8.1 [facility] HospitalDyhiogtBRATUCBHFP1476-19-16 17:45:00 Test Item Value Reference Range Interpretation Comments Segs (test code = Segs) 66.6 45.0-75.0 [id number] 17:45:00 Test Item Value Reference Range Interpretation Comments Lymphocytes (test code = Lymphocytes) 25.4 20.0-40.0 [facility]anoGxeggfdXHFXCESLGD2685-52-93 17:45:00 Test Item Value Reference Range Interpretation Comments Monocytes (test code = Monocytes) 6.9 2.0-12.0 [facility]URINE [id number] 17:45:00 Test Item Value Reference Range Interpretation Comments U Preg (test code = U Negative (11/05/14 12:45 Preg) PM) [facility] BANK [id number] 17:45:00 Test Item Value Reference Range Interpretation Comments ABO/Rh (test code = ABO/Rh) O NEG [facility] HospitalWxrarcxVMWMNYJVWH9043-97-28 17:45:00 Test Item Value Reference Range Interpretation Comments MPV (test code = MPV) 8.9 7.4-10.4 [facility] HospitalUofygwyZMUTCQMUKG4774-87-67 17:45:00 Test Item Value Reference Range Interpretation Comments Hct (test code = Hct) 39.2 36.0-48.0 [facility] HospitalDcymfneOSKXQNEPBO1500-44-61 17:45:00 Test Item Value Reference Range Interpretation Comments MCH (test code = MCH) 28.3 pg 27.0-31.0 [facility]a[id number] 17:45:00 Test Item Value Reference Range Interpretation Comments MCV (test code = MCV) 87.9 80.0-98.0 [facility]anoJazwxelEVCQFEXUTG1068-79-18 17:45:00 Test Item Value Reference Range Interpretation Comments Platelet (test code = Platelet) 315 133-450 [facility] WorthTnpqccgOJJOAZEOYP3792-65-77 17:45:00 Test Item Value Reference Range Interpretation Comments RDW (test code = RDW) 16.6 11.5-14.5 [facility] WorthJpjqfdcMLFOKNZZWJ3250-10-87 17:45:00 Test Item Value Reference Range Interpretation Comments MCHC (test code = MCHC) 32.2 32.0-36.0 [facility] WorthWimwzwcVOAITMNWEM9145-69-03 17:45:00 Test Item Value Reference Range Interpretation Comments WBC (test code = WBC) 8.1 3.7-10.4 [facility] WorthYtrwuqzRYWCFSMDRH1505-21-84 17:45:00 Test Item Value Reference Range Interpretation Comments RBC (test code = RBC) 4.46 4.20-5.40 [facility] WorthNvruvetJUZKSOZNBK2534-45-40 17:45:00 Test Item Value Reference Range Interpretation Comments Hgb (test code = Hgb) 12.6 12.0-16.0 [facility] WorthEdkghpaUEEDESBWWC0511-82-92 17:45:00 Test Item Value Reference Range Interpretation Comments Basophils # (test code 0.0 See_Comment [Aut omated message] The = Basophils #) system which generated this result tra nsmitted reference range : <=0.2. The reference r karli was not used to int erpret this result as normal/abnormal . [facility] Wor[id number] 17:45:00 Test Item Value Reference Range Interpretation Comments Lymphocytes # (test code = Lymphocytes 2.1 1.0-5.5 #) [facility] Wor[id number] 17:45:00 Test Item Value Reference Range Interpretation Comments Monocytes # (test code 0.6 See_Comment [Aut omated message] The = Monocytes #) system which generated this result tra nsmitted reference range : <=0.8. The reference r karli was not used to int erpret this result as normal/abnormal . [facility] WorthHpwbkgsGOWGTZORBJ5886-51-50 17:45:00 Test Item Value Reference Range Interpretation Comments Eosinophils # (test code 0.1 See_Comment [A utomated message] The = Eosinophils #) system whic h generated this result tra nsmitted reference range : <=0.5. The reference r karli was not used to int erpret this result as normal/abnormal . [facility] [id number] 17:45:00 Test Item Value Reference Range Interpretation Comments Eosinophils (test code = 1.0 See_Comment [A utomated message] The Eosinophils) system which ge nerated this result tra nsmitted reference range : <=4.0. The reference r karli was not used to int erpret this result as normal/abnormal . [facility] WorthQriwdznSKJDGZRHKR2784-65-59 17:45:00 Test Item Value Reference Range Interpretation Comments Basophils (test code = 0.1 See_Comment [Aut omated message] The Basophils) system which ge nerated this result tra nsmitted reference range : <=1.0. The reference r karli was not used to int erpret this result as normal/abnormal . [facility] Wor[id number] 17:45:00 Test Item Value Reference Range Interpretation Comments Segs-Bands # (test code = Segs-Bands #) 5.4 1.5-8.1 [facility] [id number] 17:45:00 Test Item Value Reference Range Interpretation Comments Segs (test code = Segs) 66.6 45.0-75.0 [facility] HospitalDvrctlwJWKYQQAYKG4723-70-79 17:45:00 Test Item Value Reference Range Interpretation Comments Lymphocytes (test code = Lymphocytes) 25.4 20.0-40.0 [facility] Wor[id number] 17:45:00 Test Item Value Reference Range Interpretation Comments Monocytes (test code = Monocytes) 6.9 2.0-12.0 [facility]2015-05-18 17:45:00 Test Item Value Reference Range Interpretation Comments U Preg (test code = U Negative (11/05/14 12:45 Preg) PM) [facility]
[2022-08-02] MEDS ORDERED: HYDROCODONE/APAP 5/325 MG TAB ONE (00:17)
--- NOTE | 2022-08-02 00:27 | ER ---
Nurse's Notes [facility] Name: Kelle Rivas Age: 56 yrs Sex: Female : 1965 Arrival Date: 08/01/2022 Time: 23:15 Bed 15 Private MD: Diagnosis: Pain in right knee Presentation: 08/01 23:36 Chief complaint: Patient states: I suddenly developed a really bad pain on my right ha1 knee. Coronavirus screen: Vaccine status: Patient reports receiving the 2nd dose of the covid vaccine. moderna. Ebola Screen: No symptoms or risks identified at this time. Initial Sepsis Screen: Does the patient meet any 2 criteria? No. Patient's initial sepsis screen is negative. Does the patient have a suspected source of infection? No. Patient's initial sepsis screen is negative. Risk Assessment: Do you want to hurt yourself or someone else? Patient reports no desire to harm self or others. Onset of symptoms was August 01, 2022. 23:36 Method Of Arrival: Wheelchair ha1 23:36 Acuity: JINA 4 ha1 Triage Assessment: 23:40 General: Appears uncomfortable, Behavior is cooperative. ha1 08/02 00:17 Pain: Complains of pain in R knee Pain currently is 6 out of 10 on a pain scale. at ke1 worst was 6 out of 10 on a pain scale. level that patient reports is acceptable is 2 out of 10 on a pain scale. Musculoskeletal: Reports pain in R knee. Historical: - Allergies: 08/01 23:47 No Known Allergies; ha1 - Home Meds: 23:47 Metformin Oral [Active]; ha1 - PMHx: 23:47 prediabetic; ha1 - Immunization history:: Adult Immunizations up to date. - Social history:: Smoking status: Patient denies any tobacco usage or history of. Screenin/12 00:16 [facility] ED Fall Risk Assessment (Adult) History of falling in the last 3 months, ke1 including since admission No falls in past 3 months (0 pts) Confusion or Disorientation No (0 pts) Intoxicated or Sedated No (0 pts) Impaired Gait No (0 pts) Mobility Assist Device Used No (0 pt) Altered Elimination No (0 pt) Score/Fall Risk Level 0 - 2 = Low Risk. Abuse screen: Denies threats or abuse. Nutritional screening: No deficits noted. Tuberculosis screening: No symptoms or risk factors identified. Vital Signs: 08/01 23:36 BP 131 / 86; Pulse 81; Resp 18 S; Temp 98.6; Pulse Ox 100% on R/A; Weight 70.31 kg; ha1 Height 5 ft. 2 in. (157.48 cm); Pain 10/10; 23:36 Body Mass Index 28.35 (70.31 kg, 157.48 cm) ha1 ED Course: 23:15 Patient arrived in ED. ja2 23:19 David Pleitez DO is Attending Physician. ms3 23:36 Martha Guzman, JOYCE is Primary Nurse. ke1 23:47 Triage completed. ha1 02 00:07 Knee Right 3 View XRAY In Process Unspecified. EDMS 00:16 Arm band placed on right wrist. ke1 00:16 Bed in low position. Call light in reach. ke1 00:16 No provider procedures requiring assistance completed. ke1 00:26 Matthew Paz MD is Referral Physician. ms3 01:34 Patient did not have IV access during this emergency room visit. ke1 Administered Medications: 00:16 Drug: HYDROcodone-acetaminophen 5 mg-325 mg 1 tabs Route: PO; ke1 01:15 Drug: Tessalon Perle (benzonatate) 100 mg Route: PO; ke1 01:28 Not Given (Duplicate Order): Tessalon Perle (benzonatate) 100 mg PO once ll3 Medication: 01:34 VIS not applicable for this client. ke1 Outcome: 00:26 Discharge ordered by . ms3 01:34 Discharged to home via wheelchair. ke1 01:34 Condition: good 01:34 Discharge instructions given to patient. 01:34 Patient left the ED. ke1 Signatures: Dispatcher [employer] EDMS David Pleitez DO DO ms3 Lyndsay Olea ja2 Martha Guzman, JOYCE COOK ke1 Arleen Sin RN RN ha1 Haylee Blackburn RN ll3
--- NOTE | 2022-08-02 00:27 | EDPHYS ---
Physician Documentation [facility] Name: Kelle Rivas Age: 56 yrs Sex: Female : 1965 Arrival Date: 08/01/2022 Time: 23:15 Bed 15 Private MD: ED Physician David Pleitez HPI: 08/01 23:36 This 56 yrs old Female presents to ER via Unassigned with complaints of Knee Injury. ms3 23:36 56-year-old female with no past medical history presents for right knee pain after ms3 twisting on her knee while walking in the kitchen. Patient states without movement she does not have pain, with movement patient experiences 10/10 sharp pain located in the right medial knee. Patient states she is unable to bear weight.. Historical: - Allergies: 23:47 No Known Allergies; ha1 - Home Meds: 23:47 Metformin Oral [Active]; ha1 - PMHx: 23:47 prediabetic; ha1 - Immunization history:: Adult Immunizations up to date. - Social history:: Smoking status: Patient denies any tobacco usage or history of. ROS: 23:36 Constitutional: Negative for fever, and chills. Neck: Negative for injury, pain, and ms3 swelling, Cardiovascular: Negative for chest pain, and palpitations. Respiratory: Negative for shortness of breath, cough, wheezing, and pleuritic chest pain, Abdomen/GI: Negative for abdominal pain, nausea, vomiting, diarrhea, and constipation. 23:36 MS/extremity: Positive for Right knee pain. Exam: 23:36 Constitutional: This is a well developed, well nourished patient who is awake, alert, ms3 and in no acute distress. Head/Face: Normocephalic, atraumatic. Neck: Trachea midline, no cervical lymphadenopathy. Supple, full range of motion without nuchal rigidity, or vertebral point tenderness. No Meningismus. Chest/axilla: Normal chest wall appearance and motion. Nontender with no deformity. Cardiovascular: Regular rate and rhythm with a normal S1 and S2. No gallops, murmurs, or rubs. Normal PMI, no JVD. No pulse deficits. Respiratory: Lungs have equal breath sounds bilaterally, clear to auscultation and percussion. No rales, rhonchi or wheezes noted. No increased work of breathing, no retractions or nasal flaring. Skin: Warm, dry with normal turgor. Normal color with no rashes, no lesions, and no evidence of cellulitis. 23:36 Musculoskeletal/extremity: Extremities: noted in the right knee: decreased ROM, pain. Vital Signs: 23:36 BP 131 / 86; Pulse 81; Resp 18 S; Temp 98.6; Pulse Ox 100% on R/A; Weight 70.31 kg; ha1 Height 5 ft. 2 in. (157.48 cm); Pain 10/10; 23:36 Body Mass Index 28.35 (70.31 kg, 157.48 cm) ha1 MDM: 23:31 Patient medically screened. ms3 23:36 Differential diagnosis: Meniscus tear vs LCL tear vs Fx. ms3 08/02 00:27 Data reviewed: vital signs, nurses notes, radiologic studies, and as a result, I will ms3 discharge patient. I considered the following discharge prescriptions or medication management in the emergency department Medications were administered in the Emergency Department. See MAR. Independent interpretation of the following test(s) in the Emergency Department X-Ray: My interpretation is Knee x-ray image reviewed: Negative. Counseling: I had a detailed discussion with the patient and/or guardian regarding: the historical points, exam findings, and any diagnostic results supporting the discharge/admit diagnosis, radiology results, the need for outpatient follow up, to return to the emergency department if symptoms worsen or persist or if there are any questions or concerns that arise at home. ED course: Discussed x-ray findings with patient. Patient to follow-up with Dr. Paz in 2 to 3 days. Patient understands and agrees with plan. All questions were answered. Return precautions discussed include worsening symptoms, or any other concerns.. 08/01 23:31 Order name: Knee Right 3 View XRAY ms3 08/02 00:27 Order name: Crutches; Complete Time: : ms3 08/02 00:27 Order name: Knee Immobilizer; Complete Time: : ms3 Administered Medications: 00:16 Drug: HYDROcodone-acetaminophen 5 mg-325 mg 1 tabs Route: PO; ke1 01:15 Drug: Tessalon Perle (benzonatate) 100 mg Route: PO; ke1 01:28 Not Given (Duplicate Order): Tessalon Perle (benzonatate) 100 mg PO once ll3 Disposition Summary: 08/02/22 00:26 Discharge Ordered Location: Home ms3 Condition: Stable ms3 Diagnosis - Pain in right knee ms3 Followup: ms3 - With: Matthew Paz MD - When: 2 - 3 days - Reason: Recheck today's complaints Discharge Instructions: - Discharge Summary Sheet ms3 - Crutch Use, Adult, Kyrt-tm-Klie ms3 - Acute Knee Pain, Adult ms3 - How to Use a Knee Immobilizer, Espg-ab-Wxsl ms3 Forms: - Medication Reconciliation Form ms3 - Thank You Letter ms3 - Antibiotic Education ms3 - Prescription Opioid Use ms3 Prescriptions: - Tessalon Perles 100 mg Oral Capsule - take 1 capsule by ORAL route every 8 hours As needed; 15 capsule; Refills: 0, ms3 Product Selection Permitted Signatures: Dispatcher [employer] EDMS David Pleitez, DO BUNCH ms3 Martha Guzman RN RN ke1 Arleen Sin RN RN charly1 Haylee Blackburn RN 3
[2022-08-02] MEDS ORDERED: BENZONATATE 100 MG CAP PO ONE (01:13)
[2022-08-02 01:41] VITALS: BP 131/86; TEMP 98.6; O2SAT 100
--- NOTE | 2022-08-02 20:00 | RAD REPORT ---
EXAM DESCRIPTION: XR Right Knee, 3 Views CLINICAL HISTORY: The patient is 56 years old and is Female; PAIN TECHNIQUE: Three views of the right knee. COMPARISON: No relevant prior studies available. FINDINGS: BONES/JOINTS: Mild tricompartmental joint space narrowing is present, most prominent kerrie ng the medial compartment with spurring of the medial tibial plateau and femoral condyle. There is no joint effusion. No acute fracture. No dislocation. SOFT TISSUES: Unremarkable. IMPRESSION: Mild degenerative change specifically of the medial compartment. Electronically signed by: Fanny Kraus MD 08/02/2022 12:14 AM PRINTER'S ASSISTANT Due to temporary technical issues with the PACS/Fluency reporting system, reports are being signed by the in house radiologists without review as a courtesy to insure prompt reporting. The interpreting radiologist is fully responsible for the content of the report.
== END 2022-08-02 01:34 | disposition home or self-care (01) ==
LOC: ER 23:08
DX: M25.561 Pain in right knee (principal); R73.03 Prediabetes
CPT/HCPCS: 99283

== ENCOUNTER 2022-08-03 00:38 | Emergency (ER) | payer OTHER ==
--- OUTSIDE RECORDS SUMMARY | 2022-08-03 00:45 | XMS REPORT | Continuity of Care Document ---
:1965 Author Organization [facility] t Address [address] [place] [address] [address] [place] [address] Care Team Providers Name Role Phone TAYLOR VIDAL Primary Care Physician Unavailable TABITHA DE LEON Attending Clinician Unavailable Santosh Rosario MD Attending Clinician [phone] SANTOSH ROSARIO Attending Clinician Unavailable Taylor Vidal MD Attending Clinician Kelly Odom CMA Attending Clinician Unavailable TAYLOR VIDAL Attending Clinician Unavailable CORRIE SALEEM Attending Clinician Unavailable SHANNAN YU Attending Clinician Unavailable Corrie Saleem MD Attending Clinician [phone] Nitesh Adams Attending Clinician Nitesh Adams Admitting Clinician Payers Payer Name Policy Type Policy Number Effective Date Expiration Date Gordon blackmon [facility] [id number] 2020 00:00:00 SELECT/SELECT PLUS Problems Condition Condition Condition Status Onset Resolution Last Treating Co mments Source Name Details Category Date Date Treatment Clinician Date Primary Primary Disease Active 2021-[address] [facility] Type 2 Type 2 Disease Active 2021-[address] [facility] diabetes diabetes 2-08 [facility] mellitus mellitus 00:00: Medica l without without 00 Center complicati complicati on, on, without without long-term long-term current current use of use of insulin insulin Essential Essential Disease Active 2021-06 [facility] hypertensi hypertensi 2-08 Kristina kes on on 00:00: Medical 00 [place] Acquired Acquired Disease Active [facility] hypothyroi hypothyroi 2-08 Kristina kes dism dism 00:00: Medical 00 [place] PAIN PAIN Diagnosis Active 2014-11-13 Mem oria Active 10-23 14:43:00 l 10/23/2014 00:00: Wang driver [address] Allergies, Adverse Reactions, Alerts Allergy Allergy Status Severity Reaction(s) Onset Inactive Treating Comm ents Source Name Type Date Date Clinician NO KNOWN Allergy Active [facility] Family History Family Member Diagnosis Comments Start Date Stop Date Source Natural brother Hyperlipidemia [facility] Natural brother Hypertension [facility] Natural daughter Diabetes [facility] Natural father Hyperlipidemia [facility] Natural father Hypertension [facility] Natural mother Hyperlipidemia [facility] Natural mother Hypertension [facility] Natural mother Liver disease [facility] Natural sister Diabetes [facility] Natural sister Hyperlipidemia [facility] Natural sister Hypertension [facility] Social History Social Habit Start Date Stop Date Quantity Comments Source Alcohol intake 2022-07-14 2022-07-14 Current [facility] 00:00:00 00:00:00 non-drinker of Medical Ce nter alcohol (finding) Sex Ass[birth year] At [birth year] [facility] 00:00:00 00:00:00 [facility] Smoking Status Start Date Stop Date Source Social History [facility] Medications Ordered Filled Start Stop Current Ordering Indication Dosage Frequency Signature Comments Components Source Medication Medication Date Date Medication? Clinician (SIG) Name Name levothyroxi Yes TAKE [address] [facility] ne 1-26 TABLET [facility] (SYNTHROID, 00:00: MOUTH Medic al LEVOTHROID) 00 EVERY Center 25 MCG MORNING ON tablet AN EMPTY STOMACH FOR 30 DAYS. levothyroxi Yes TAKE [address] [facility] ne 1-26 TABLET BY [facility] (SYNTHROID, 00:00: MOUTH Medic al LEVOTHROID) 00 EVERY Center 25 MCG MORNING ON tablet AN EMPTY STOMACH FOR 30 DAYS. pravastatin 2023-0 Yes 10mg QD Take [address] [facility] (PRAVACHOL) 1-11 tablet (10 Kristina kes 10 MG 00:00: mg total) Medical tablet 00 by mouth Center daily. pravastatin 0 Yes 10mg QD Take [address] [facility] (PRAVACHOL) 1-11 tablet (10 Kristina kes 10 MG 00:00: mg total) Medical tablet 00 by mouth Center daily. pravastatin 2021-06- No TAKE [address] [facility] (PRAVACHOL) 08-17- TABLET BY Kristina kes 10 MG 00:00: 00:00 MOUTH Medical tablet 00 :00 EVERY DAY Center pravastatin 2021-06- No TAKE [address] [facility] (PRAVACHOL) 08-17- TABLET BY Kristina kes 10 MG 00:00: 00:00 MOUTH Medical tablet 00 :00 EVERY DAY Center metoprolol 2021-06- No [address] succinate 07-29 [facility] (TOPROL-XL) 16:32: 00:00 Medic al 25 MG 24 hr 09 :00 Center tablet metoprolol 2021-06- No [address] succinate 07-29 [facility] (TOPROL-XL) 16:32: 00:00 Medic al 25 MG 24 hr 09 :00 Center tablet pravastatin 2021-06- No 20mg QD Take [address] [facility] (PravachoL) 07-29- by mouth Stef es 20 MG 15:48: 00:00 daily. Medical tablet 57 :00 [place] pravastatin 2021-06- No 20mg QD Take [address] [facility] (PravachoL) 07-29- by mouth Stef es 20 MG 15:48: 00:00 daily. Medical tablet 57 :00 [place] amitriptyli 2021-06- Yes 25mg QD Take [address] [facility] ne (ELAVIL) 07-29-08 tablet (25 L ukes 25 MG 00:00: 23:59 mg total) Medica l tablet 00 :00 by mouth Center nightly for 90 days. metoprolol 2021-06- Yes 25mg QD Take [address] [facility] succinate 2-08 tablet (25 Stef es (TOPROL-XL) 00:00: 23:59 mg total) Medical 25 MG 24 hr 00 :00 by mouth Cent er tablet daily for 90 days. metFORMIN 2021-06- Yes 500mg Take [address] [facility] (GLUCOPHAGE -01 21- tablet [facility] -XR) 500 MG 00:00: 23:59 (500 mg Me dical 24 hr 00 :00 total) by Center tablet mouth daily with dinner for 90 days. amitriptyli 2021-06- Yes 25mg QD Take [address] [facility] ne (ELAVIL) 07-29- tablet (25 L ukes 25 MG 00:00: 23:59 mg total) Medica l tablet 00 :00 by mouth Center nightly for 90 days. metoprolol 2021-06- Yes 25mg QD Take [address] [facility] succinate 07-29 tablet (25 Stef es (TOPROL-XL) 00:00: 23:59 mg total) Medical 25 MG 24 hr 00 :00 by mouth Cent er tablet daily for 90 days. metFORMIN 2021-06- Yes 500mg Take [address] [facility] (GLUCOPHAGE -01 21- tablet [facility] -XR) 500 MG 00:00: 23:59 (500 mg Me dical 24 hr 00 :00 total) by Center tablet mouth daily with dinner for 90 days. levothyroxi 2021-06- No 25ug Take [address] [facility] ne 07-29- tablet (25 [facility] (SYNTHROID, 00:00: 00:00 mcg total) Medical LEVOTHROID) 00 :00 by mouth Cent er 25 MCG Every tablet morning on an empty stomach for 90 days. levothyroxi 2021-06- No 25ug Take [address] [facility] ne 07-29- tablet (25 [facility] (SYNTHROID, 00:00: 00:00 mcg total) Medical LEVOTHROID) 00 :00 by mouth Cent er 25 MCG Every tablet morning on an empty stomach for 90 days. pravastatin 2021-06- No 10mg QD Take [address] [facility] (PRAVACHOL) 07-29 tablet (10 L ukes 10 MG 00:00: 00:00 mg total) Medica l tablet 00 :00 by mouth Center daily for 90 days. pravastatin 2021-06- No 10mg QD Take [address] [facility] (PRAVACHOL) 07-29- tablet (10 L ukes 10 MG 00:00: 00:00 mg total) Medica l tablet 00 :00 by mouth Center daily for 90 days. amitriptyli 2021- No TAKE [address] [facility] ne (ELAVIL) 8-15 12-08 TABLET BY Kristina kes 25 MG 00:00: 00:00 MOUTH Medical tablet 00 :00 NIGHTLY Center FOR 30 DAYS. amitriptyli 2021- No TAKE [address] [facility] ne (ELAVIL) 8-15 12-08 TABLET BY Kristina kes 25 MG 00:00: 00:00 MOUTH Medical tablet 00 :00 NIGHTLY Center FOR 30 DAYS. levothyroxi 2021- No TAKE [address] [facility] ne 7-25 12-08 TABLET BY Sri (SYNTHROID, 00:00: 00:00 MOUTH Medi jose LEVOTHROID) 00 :00 EVERY Center 25 MCG MORNING ON tablet AN EMPTY STOMACH FOR 30 DAYS. levothyroxi 2021- No TAKE [address] [facility] ne 7-25 12-08 TABLET BY Sri (SYNTHROID, 00:00: 00:00 MOUTH Medi jose LEVOTHROID) 00 :00 EVERY Center 25 MCG MORNING ON tablet AN EMPTY STOMACH FOR 30 DAYS. pravastatin 2021- No TAKE [address] [facility] [facility] (PRAVACHOL) 7-21 12-08 TABLET BY Kristina kes 10 MG 00:00: 00:00 MOUTH Medical tablet 00 :00 EVERY DAY Center pravastatin 2021- No TAKE [address] [facility] (PRAVACHOL) 7-21 12-08 TABLET BY Kristina kes 10 MG 00:00: 00:00 MOUTH Medical tablet 00 :00 EVERY DAY [place] Moderna Yes 0.[address] [facility] COVID-19 7- [facility] Vaccine, 08:51: Medical EUA, 22 [place] (Moderna COVID-19 Vaccine, PF,) 100 mcg/0.5 mL Susp syringe Moderna 0 Yes 0.[address] COVID-19 7-06 [facility] Vaccine, 08:51: Medical EUA, 22 [place] (Moderna COVID-19 Vaccine, PF,) 100 mcg/0.5 mL Susp syringe melatonin Yes 6mg Take [address] ([place]) 3 7-06 by mouth. Stef es mg Tab 08:49: Medical tablet 22 Center melatonin Yes 6mg Take [address] [facility] ([place]) 3 7-06 by mouth. Stef es mg Tab 08:49: Medical tablet 22 Center levothyroxi 2021- No TAKE [address] [facility] ne 6-17 07-25 TABLET BY Kristinakes (SYNTHROID, 00:00: 00:00 MOUTH Medi jose LEVOTHROID) 00 :00 EVERY Center 25 MCG MORNING ON tablet AN EMPTY STOMACH FOR 30 DAYS. levothyroxi 2021- No TAKE [address] [facility] ne 6-17 07-25 TABLET BY [facility]ukes (SYNTHROID, 00:00: 00:00 MOUTH Medi jose LEVOTHROID) 00 :00 EVERY Center 25 MCG MORNING ON tablet AN EMPTY STOMACH FOR 30 DAYS. metFORMIN 2021- No 500mg Take [address] (GLUCOPHAGE 5-11 12-08 mg by [facility]ukes -XR) 500 MG 00:00: 00:00 mouth Medi jose 24 hr 00 :00 daily with Center tablet dinner. metFORMIN 2021- No 500mg Take [address] (GLUCOPHAGE 5-11 12-08 mg by [facility]ukes -XR) 500 MG 00:00: 00:00 mouth Medi jose 24 hr 00 :00 daily with Center tablet dinner. amitriptyli 2021- No 25mg QD Take [address] [facility] ne (ELAVIL) 4-20 08-15 tablet (25 L ukes 25 MG 00:00: 00:00 mg total) Medica l tablet 00 :00 by mouth Center nightly for 30 days. amitriptyli 2021- No 25mg QD Take [address] [facility] ne (ELAVIL) 4-20 08-15 tablet (25 L ukes 25 MG 00:00: 00:00 mg total) Medica l tablet 00 :00 by mouth Center nightly for 30 days. metFORMIN 2021- No 500mg Take [address] (GLUCOPHAGE 3-22 03-22 mg by [facility]ukes ) 500 MG 16:23: 00:00 mouth 2 Medic al tablet 22 :00 (two) Center times daily with breakfast and dinner. pravastatin 2021- No 10mg QD Take [address] [facility] (PRAVACHOL) 3-22 03-22 by mouth Stef es 10 MG 16:23: 00:00 daily. Medical tablet 22 :00 Center metoprolol 2021-2021- No 25mg QD Take [address] succinate 09-09- by mouth [facility]ukes (TOPROL-XL) 16:23: 00:00 daily. Med ical 25 MG 24 hr 22 :00 Center tablet metFORMIN 2021-2021- No 500mg Take [address] (GLUCOPHAGE 3-09 09-22 mg by [facility] ) 500 MG 16:23: 00:00 mouth 2 Medic al tablet 22 :00 (two) Center times daily with breakfast and dinner. pravastatin 2021-2021- No 10mg QD Take [address] [facility] (PRAVACHOL) 09-09- by mouth Stef es 10 MG 16:23: 00:00 daily. Medical tablet 22 :00 Center metoprolol 2021-2021- No 25mg QD Take [address] succinate 09-09- by mouth [facility]ukes (TOPROL-XL) 16:23: 00:00 daily. Med ical 25 MG 24 hr 22 :00 Center tablet pravastatin 2021-2021- No 10mg QD Take [address] [facility] (PRAVACHOL) 09-09-21 tablet (10 L ukes 10 MG 00:00: 00:00 mg total) Medica l tablet 00 :00 by mouth Center daily for 90 days. pravastatin 2021-2021- No 10mg QD Take [address] [facility] (PRAVACHOL) 09-09-21 tablet (10 L ukes 10 MG 00:00: 00:00 mg total) Medica l tablet 00 :00 by mouth Center daily for 90 days. metFORMIN 2021-2021- No 500mg Take [address] [facility] (GLUCOPHAGE 3- 06-20 tablet [facility]ukes ) 500 MG 00:00: 23:59 (500 mg Medic al tablet 00 :00 total) by Center mouth 2 (two) times daily with breakfast and dinner for 90 days. metoprolol 2021-0 2021- No 25mg QD Take [address] [facility] succinate 3- 06-20 tablet (25 Stef es (TOPROL-XL) 00:00: 23:59 mg total) Medical 25 MG 24 hr 00 :00 by mouth Cent er tablet daily for 90 days. metFORMIN 2021- No 500mg Take [address] [facility] (GLUCOPHAGE 3-22 06-20 tablet [facility]ukes ) 500 MG 00:00: 23:59 (500 mg Medic al tablet 00 :00 total) by Center mouth 2 (two) times daily with breakfast and dinner for 90 days. metoprolol 2021- No 25mg QD Take [address] [facility] succinate 3-22 06-20 tablet (25 Stef es (TOPROL-XL) 00:00: 23:59 mg total) Medical 25 MG 24 hr 00 :00 by mouth Cent er tablet daily for 90 days. levothyroxi 2021- No 25ug Take [address] [facility] ne 3-22 04-21 tablet (25 [facility] (Synthroid) 00:00: 23:59 mcg total) Medical 25 MCG 00 :00 by mouth Center tablet Every morning on an empty stomach for 30 days. levothyroxi 2021- No 25ug Take [address] [facility] ne 3-22 04-21 tablet (25 [facility] (Synthroid) 00:00: 23:59 mcg total) Medical 25 MCG 00 :00 by mouth Center tablet Every morning on an empty stomach for 30 days. amitriptyli 2021- No 25mg QD Take [address] [facility] ne (ELAVIL) 3-22 04-20 tablet (25 L ukes 25 MG 00:00: 00:00 mg total) Medica l tablet 00 :00 by mouth Center nightly for 30 days. amitriptyli 2021- No 25mg QD Take [address] [facility] ne (ELAVIL) 3-22 04-20 tablet (25 L ukes 25 MG [...] a 5-23 (Same as: l 03:12: Motrin) [place] 00 "Do Not Crush" Take with food. Cefoxitin Yes Notes: Memori a 20 MG/ML 5-22 (Same As: l Injectable 17:00: Mefoxin) Her carter Solution 00 MEDICATION WASTE Product Size: 2000 mg Product Wasted: ___ mg Ketorolac 2014- No 4 days Memor ia 5-22 l 17:00: MEDICATION [place] 00 WASTE Product Size: 30 mg Product Wasted: ___ mg Cefoxitin Yes Notes: Memori a 20 MG/ML 5-22 (Same As: l Injectable 17:00: Mefoxin) Her carter Solution 00 MEDICATION WASTE Product Size: 2000 mg Product Wasted: ___ mg Ketorolac No 4 days Memor ia 5-22 l 17:00: MEDICATION [place] 00 WASTE Product Size: 30 mg Product Wasted: ___ mg Cefoxitin Yes Notes: Memori a 20 MG/ML 5-22 (Same As: l Injectable 17:00: Mefoxin) Her carter Solution 00 MEDICATION WASTE Product Size: 2000 mg Product Wasted: ___ mg Ketorolac No 4 days Memor ia -22 l 17:00: MEDICATION [place] 00 WASTE Product Size: 30 mg Product Wasted: ___ mg Dexamethaso No Notes: Deonte kendall ne 5-22 Concentrat l 16:02: ion: [place] 00 4mg/ml Ondansetron No Notes: Deonte kendall 5-22 (Same as: l 16:02: Zofran) [place] 00 MEDICATION WASTE Product Size: 4 mg Product Wasted: ___ mg Promethazin No 6.25 mg, Me moria e 5-22 25 mL, l 16:02: Route: [place] 00 IVPB, Drug form: SOLN, ONCE, Dosing Weight 70, kg, PRN Nausea & Vomiting, Start date: 11/09/14 11:02:00 Albuterol No Notes: SEE Me moria 0.83 MG/ML 5-22 RT l Inhalant 16:02: DOCUMENTAT Her carter Solution 00 ION (Same as: Proventil) Ephedrine No Notes: Memori a 5-22 (Same as: l 16:02: ePHEDrine Sulfate) Calcium No 500 mL, Memoria Chloride 11-09 Rate: 125 l 0.0014 16:02: ml/hr, [place] MEQ/ML / 00 Infuse Potassium over: 4 [...] - (Same as: l 16:02: Roxicodone ) Morphine No Notes: Memoria - (Same l 16:02: as:MORPhin e Sulfate) Lorazepam No Notes: Memori a - (Same as: l 16:02: Ativan) Diphenhydra No Notes: Deonte kendall mine - (Same as: l 16:02: Benadryl) Racepinephr No Notes: Deonte kendall ine 11-09 (racepinep l 16:02: hrine *2.25% inh 0.5ml SOLN) (Same as:S2) Naloxone No Notes: Memoria 5-22 Same as l 16:02: Narcan Glycopyrrol No Notes: Deonte kendall ate - (Same as: l 16:02: Robinul) Dexamethaso No Notes: Deonte kendall ne 11-09 Concentrat l 16:02: ion: 4mg/ml Ondansetron No Notes: Deonte kendall -22 (Same as: l 16:02: Zofran) MEDICATION WASTE [...] as: Proventil) Ephedrine No Notes: Memori a 11-09 (Same as: l 16:02: ePHEDrine Sulfate) Calcium No 500 mL, Memoria Chloride 11-09 Rate: 125 l 0.0014 16:02: ml/hr, [place] MEQ/ML / 00 Infuse Potassium over: 4 [...] # of times esmolol No Notes: Memoria 22 (Same as: l 16:02: Brevibloc) Hydralazine No Notes: Deonte kendall 5-22 (Same as: l 16:02: Apresoline ) Push over 5 minutes Hydromorpho No Notes: Deonte kendall ne - Same as: l 16:02: Dilaudid Flumazenil No Notes: Memor ia - (Same as: l 16:02: Romazicon) Morphine No Notes: Memoria -22 (Same l 16:02: as:MORPhin e Sulfate) Acetaminoph No Notes: Deonte kendall en - Infuse l 16:02: over 15 minutes Do not exceed 4gm/day of acetaminop hen MEDICATION WASTE Product Size: 1000 mg Product Wasted: ___ mg Labetalol No 10 mg, 2 Deonte kendall 5-22 mL, Route: l 16:02: IVP, Drug form: INJ, Q5Min, Dosing Weight 70, kg, PRN Elevated BP, Start date: 11/09/14 11:02:00, Duration: 5 doses or times, Stop date: Limited # of times esmolol No Notes: Memoria - (Same as: l 16:02: Brevibloc) Hydralazine No Notes: Deonte kendall -22 (Same as: l 16:02: Apresoline ) Push over 5 minutes Lorazepam No Notes: Memori a - (Same as: l 16:02: Ativan) Diphenhydra No Notes: Deonte kendall mine -22 (Same as: l 16:02: Benadryl) Racepinephr No Notes: Deonte kendall ine -22 (racepinep l 16:02: hrine *2.25% inh 0.5ml SOLN) (Same as:S2) Naloxone No Notes: Memoria - Same as l 16:02: Narcan Glycopyrrol No Notes: Deonte kendall ate - (Same as: l 16:02: Robinul) [place] 00 Dexamethaso No Notes: Deonte kendall ne 11-09 Concentrat l 16:02: ion: [place] 00 4mg/ml Ondansetron No Notes: Deonte kendall 11-09 (Same as: l 16:02: Zofran) MEDICATION WASTE Product Size: 4 mg Product Wasted: ___ mg Promethazin No 6.25 mg, Me moria e - 25 mL, l 16:02: Route: [place] 00 IVPB, Drug form: SOLN, ONCE, Dosing Weight 70, kg, PRN Nausea & Vomiting, Start date: 11/09/14 11:02:00 Albuterol No Notes: SEE Me moria 0.83 MG/ML 11-09 RT l Inhalant 16:02: DOCUMENTAT Her carter Solution 00 ION (Same as: Proventil) Ephedrine No Notes: Memori a 11-09 (Same as: l 16:02: ePHEDrine Sulfate) Calcium No 500 mL, Memoria Chloride 11-09 Rate: 125 l 0.0014 16:02: ml/hr, [place] MEQ/ML / 00 Infuse Potassium over: 4 [...] en 11-09 Infuse l 16:02: over 15 [place] 00 minutes Do not exceed 4gm/day of acetaminop hen MEDICATION WASTE Product Size: 1000 mg Product Wasted: ___ mg Labetalol No 10 mg, 2 Deonte kendall 5-22 mL, Route: l 16:02: IVP, Drug form: INJ, Q5Min, Dosing Weight 70, kg, PRN Elevated BP, Start date: 11/09/14 11:02:00, Duration: 5 doses or times, Stop date: Limited # of times esmolol No Notes: Memoria 5-22 (Same as: l 16:02: Brevibloc) Hydralazine No Notes: Deonte kendall 5-22 (Same as: l 16:02: Apresoline ) Push over 5 minutes Hydromorpho No Notes: Deonte kendall ne 5-22 Same as: l 16:02: Dilaudid Hydromorpho No Notes: Deonte kendall ne 5-22 Same as: l 16:02: Dilaudid Flumazenil No Notes: Memor ia 5-22 (Same as: l 16:02: Romazicon) Morphine No Notes: Memoria 5-22 (Same l 16:02: as:MORPhin e Sulfate) Lorazepam No Notes: Memori a 5-22 (Same as: l 16:02: Ativan) Diphenhydra No Notes: Deonte kendall mine 5-22 (Same as: l 16:02: Benadryl) Racepinephr No Notes: Deonte kendall ine 5-22 (racepinep l 16:02: hrine *2.25% inh 0.5ml SOLN) (Same as:S2) Flumazenil No Notes: Memor ia 5-22 (Same as: l 16:02: Romazicon) Naloxone No Notes: Memoria 5-22 Same as l 16:02: Narcan Glycopyrrol No Notes: Deonte kendall ate 5-22 (Same as: l 16:02: Robinul) Ondansetron Yes 4 mg = 1 Me [...] tab, PO, l Tablet 15:54: Q6H, PRN [place] [Zofran] 00 as needed for nausea/vom iting, [...] kendall 5-22 (Same as: l 15:52: Zofran) [place] 00 MEDICATION WASTE Product Size: 4 mg Product Wasted: ___ mg Morphine No Notes: Memoria 5-22 (Same l 15:52: as:MORPhin [place] 00 e Sulfate) Calcium No 1,000 mL, Memor ia Chloride 5-22 Rate: 125 l 0.002 15:52: ml/hr, [place] MEQ/ML / 00 Infuse Glucose 50 over: [...] e 5-22 (Same as: l 15:52: Phenergan) [place] 00 Ondansetron No Notes: Deonte kendall 5-22 (Same as: l 15:52: Zofran) [place] 00 MEDICATION WASTE Product Size: 4 mg [...] kendall 5-22 (Same as: l 15:52: Zofran) [place] 00 MEDICATION WASTE Product Size: 4 mg [...] 2022-02-[address] [facility] 00:00:00 [facility] Center Influenza, High Dose 2022-02-[address] [facility] Seasonal 00:00:00 [facility] Center Covid-19 Vaccine 2021-05-[address] [facility] MRNA (PF) 18yr+ 00:00:00 Medical C enter (Moderna)([id number]) Covid-19 Vaccine 2021-05-[address] [facility] MRNA (PF) 18yr+ 00:00:00 Medical C enter (Moderna)([id number]) Influenza, High Dose 2021-04-[address] [facility] Seasonal 00:00:[facility] Influenza, High Dose 2021-04-[address] [facility] Seasonal 00:00:00 [facility] Covid-19 Vaccine 2020-10-[address] [facility] MRNA (PF) 18yr+ 00:00:00 Medical C enter (Moderna)([id number]) Covid-19 Vaccine 2020-10-[address] [facility] MRNA (PF) 18yr+ 00:00:00 Medical C enter (Moderna)([id number]) Covid-19 Vaccine 2020-09-[address] [facility] MRNA (PF) 18yr+ 00:00:00 Medical C enter (Moderna)([id number]) Covid- Vaccine 2020-09-[address] [facility] MRNA (PF) 18yr+ 00:00:00 Medical C enter (Moderna)([id number]) Vital Signs Vital Name Observation Time Observation [...] kg Systolic blood 2022-07-14 16:16:00 131 mm[Hg] [facility] Diastolic blood 2022-07-14 16:16:00 84 mm[Hg] [facility] Heart rate 2022-07-14 16:16:00 57 /min [facility] Body temperature 2022-07-14 16:16:00 36.78 [facility] Body height 2022-07-14 16:16:00 157.5 cm [facility] Body weight 2022-07-14 16:16:00 71.215 kg [facility] BMI 2022-07-14 16:16:00 28.72 kg/m2 [facility] Oxygen saturation in 2022-07-14 16:16:00 98 /min [facility] Arterial blood by Medical Ce nter Pulse oximetry Systolic (mm Hg) 2014-11-10 13:00:00 Deonte rial [place] Diastolic (mm Hg) 2014-11-10 13:00:00 Mem orial [place] Respitory Rate 2014-11-10 13:00:00 Memori al [place] Heart Rate 2014-11-10 13:00:00 [facility] [place] Temperature Oral (F) 2014-11-10 13:00:00 98.6 F [facility] [place] Heart Rate 2014-11-10 08:50:00 [facility] [place] Systolic (mm Hg) 2014-11-10 08:50:00 Deonte rial [place] Diastolic (mm Hg) 2014-11-10 08:50:00 Mem orial [place] Temperature Oral (F) 2014-11-10 08:50:00 98.0 F [facility] [place] Respitory Rate 2014-11-10 08:50:00 Memori al [place] Systolic (mm Hg) 2014-11-10 04:40:00 Deonte rial [place] Diastolic (mm Hg) 2014-11-10 04:40:00 Mem orial [place] Respitory Rate 2014-11-10 04:40:00 Memori al [place] Heart Rate 2014-11-10 04:40:00 [facility] (F[facility] 2014-11-10 04:40:00 98.6 F [facility] BMI Calculated 2014-11-05 16:52:00 Luanne Holedr Weight 2014-11-05 16:52:00 [facility] Height 2014-11-05 16:52:00 160.02 cm [facility] Procedures Procedure Date / Time Performing Clinician Source Performed MM DIGITAL MAMMO 2022-07-29 14:40:[address] [facility] DIAGNOSTIC WITH SHAYE LEFT [facility] POCT GLUCOSE 2022-05-28 16:35:00 Taylor Vidal [facility] POCT GLYCATED HEMOGLOBIN, 2022-05-28 16:33:00 Taylor Vidal [facility] US BREAST LEFT 2022-01-22 11:11:00 Corrie Saleem [facility] MM DIGITAL MAMMO 2022-01-22 10:12:[address] [facility] DIAGNOSTIC WITH SHAYE LEFT [facility] MM DIGITAL MAMMO SCREEN 2022-01-14 15:35:[address] [facility] WITH SHAYE BILATERAL [facility] er CBC W/PLT COUNT & AUTO 2021-09-04 09:13:[address] [facility] COMPREHENSIVE METABOLIC 2021-09-04 09:13:[address] [facility] LIPID PANEL 2021-09-04 09:13:00 Taylor Vidal [facility] HEMOGLOBIN A1C 2021-09-04 09:13:00 Taylor Vidal [facility] TSH 2021-09-04 09:13:00 Taylor Vidal [facility] Laparotomy 2008-06-21 00:00:00 Jorge carter Plan of Care Planned Activity Planned Date Details Comments Source Future Scheduled 2024-09-04 Lipid panel (procedure) [facility] Test 00:00:00 [code = [id number]] Medical Ce nter Future Scheduled 2024-09-04 Lipid panel (procedure) [facility] Test 00:00:00 [code = [id number]] Medical Ce nter Future Scheduled 2024-07-29 Screening for malignant [facility] Test 00:00:00 neoplasm of breast Medical C enter (procedure) [code = [id number]] Future Scheduled 2024-07-29 Screening for malignant [facility] Test 00:00:00 neoplasm of breast Medical C enter (procedure) [code = [id number]] Future Scheduled 2023-07-[address] [facility] Test 00:00:00 [facility]ing [facility] Medical Cente r Screening (12+) [code = Tobacco Cessation Counseling and Screening (12+)] Future Scheduled 2023-07-[address] [facility] Test 00:00:00 Counseling and Medical Cente r Screening (12+) [code = Tobacco Cessation Counseling and Screening (12+)] Future Scheduled 2022-11-[address] [facility] Test 00:00:00 measurement (procedure) [facility] [code = [id number]] Future Scheduled 2022-11-[address] [facility] Test 00:00:00 measurement (procedure) [facility] [code = [id number]] Future Scheduled 2022-06-[address] [facility] Test 00:00:00 (12+) [code = Medical Center DEPRESSION SCREENING (12+)] Future Scheduled 2022-06-[address] [facility] Test 00:00:00 (12+) [code = Medical Center DEPRESSION SCREENING (12+)] Future Scheduled 2021-09-15 COVID-19 VACCINE (4 [facility]00 [facility] series) [code = COVID-19 VACCINE (4 - Booster for [facility] series)] Future Scheduled 2021-09-15 COVID-19 VACCINE (4 - [facility] 00[facility]00 [facility] series) [code = COVID-19 VACCINE (4 - Booster for [facility] series)] Future Scheduled 2013-12-09 SHINGLES VACCINES ([address] [facility] 00:00:00 2) [code = SHINGLES [facility] Center VACCINES (1 of 2)] Future Scheduled 2013-12-09 SHINGLES VACCINES ([address] [facility] 00:00:00 2) [code = SHINGLES Medical Center VACCINES (1 of 2)] Future Scheduled 1984-12-09 Screening for malignant [facility] 00:00:00 neoplasm of cervix Medical C enter (procedure) [code = 193086637] Future Scheduled 1984-12-09 Screening for malignant [facility] 00:00:00 neoplasm of cervix Medical C enter (procedure) [code = 343430717] Future Scheduled 1982-12-09 DTAP/TDAP/TD VACCINES [facility] 00:00:00 (1 - Tdap) [code = Medical C enter DTAP/TDAP/TD VACCINES (1 - Tdap)] Future Scheduled 1982-12-09 DTAP/TDAP/TD VACCINES [facility] 00:00:00 (1 - Tdap) [code = Medical C enter DTAP/TDAP/TD VACCINES (1 - Tdap)] Future Scheduled 1981-12-09 HEPATITIS C SCREENING [facility] 00:00:00 [code = HEPATITIS C Medical Center SCREENING] Future Scheduled 1981-12-09 HEPATITIS C [facility]CRE[facility]ING [facility] 00:00:00 [code = HEPATITIS C Medical Center SCREENING] Future Scheduled 1973-12-09 DIABETIC EYE EXAM [code [facility] 00:00:00 = DIABETIC EYE EXAM] Medical Center Future Scheduled 1973-12-[address] [facility] examination Medical Center (regime/therapy) [code = 181582060] Future Scheduled 1973-12-09 Urine screening for [facility] 00:00:00 protein (procedure) Medical Center [code = 402170944] Future Scheduled 1973-12-09 DIABETIC EYE EXAM [code [facility] 00:00:00 = DIABETIC EYE EXAM] Medical Center Future Scheduled 1973-12-[address] [facility] 00:[facility]:00 examination Medical Center (regime/therapy) [code = 606317389] Future Scheduled 1973-12-09 Urine screening for [facility] 00:00:00 protein (procedure) Medical Center [code = 286442627] Future Scheduled 1969-12-[address] [facility] 00:00:00 0-64 YRS (1 - PCV) Medical C enter [code = PNEUMOCOCCAL VACCINE 0-64 YRS (1 - PCV)] Future Scheduled 1969-12-[address] [facility] 00:00:00 0-64 YRS (1 - PCV) Medical C enter [code = PNEUMOCOCCAL VACCINE 0-64 YRS (1 - PCV)] Future Scheduled 1965 CT Colonography (combo) [facility] 00:00:00 [code = CT Colonography [facility]ose Center (combo)] Future Scheduled 1965 Screening for malignant [facility] 00:00:00 neoplasm of colon Medical Ce nter (procedure) [code = 416323402] Future Scheduled 1963 Screening for malignant [facility] 00:00:00 neoplasm of colon Medical Ce nter (procedure) [code = 377267630] Future Scheduled 1963 Screening for malignant [facility] 00:00:00 neoplasm of colon Medical Ce nter (procedure) [code = 220127058] Future Scheduled 1963 Screening for malignant [facility] 00:00:00 neoplasm of colon Medical Ce nter (procedure) [code = 721401318] Future Scheduled 1965 Sigmoidoscopy [code = [facility] Sigmoidoscopy] Medical Cente r Future Scheduled 1965 CT Colonography (combo) [facility] 00:00:00 [code = CT Colonography Medi jose Center (combo)] Future Scheduled 1963 Screening for malignant [facility] 00:00:00 neoplasm of colon Medical Ce nter (procedure) [code = 645266290] Future Scheduled 1963 Screening for malignant [facility] 00:00:00 neoplasm of colon Medical Ce nter (procedure) [code = 263937301] Future Scheduled 1963 Screening for malignant [facility] 00:00:00 neoplasm of colon Medical Ce nter (procedure) [code = 268336418] Future Scheduled 1963 Screening for malignant [facility] 00:00:00 neoplasm of colon Medical Ce nter (procedure) [code = 493464213] Future Scheduled 1965 Sigmoidoscopy [code [facility] Sigmoidoscopy] Medical Cente r Encounters Start End Encounter Admission Attending Care Care Encounter Source Date/Time Date/Time Type Type Clinicians Facility Department ID 2021-01-06 Outpatient NITESH, [facility] [id number] [place] 13:26:47 [facility] 2020-12-25 Outpatient NITESH, [facility] [id number] [place] 15:36:42 [facility] 2022-07-29 2022-07-29 Hospital Rosario, [facility] [id number] 14:28:47 23:59:00 Encounter [facility] 2022-07-29 2022-07-29 Outpatient EL ROSARIO, [facility] SL [id number] [facility] 14:28:47 23:59:00 [facility] 2022-07-29 2022-07-29 Hospital Rosario, [facility] [id number] 14:28:47 23:59:00 Encounter [facility] 2022-07-29 2022-07-29 [facility] Rosario, [facility] [id number] 14:28:27 23:59:00 Encounter [facility] 2022-07-29 2022-07-29 [facility] Rosario, [facility] [id number] [facility] 14:28:27 23:59:00 Encounter [facility] 2022-07-29 2022-07-29 Outpatient EL MARLENE, [facility] [id number] [facility] 14:28:27 23:59:00 [facility] 2022-07-28 2022-07-28 Outside Taylor Vidal [facility] [id number] 00:00:00 00:00:00 Orders [facility] 2022-07-28 2022-07-28 Outside Taylor Vidal [facility] [id number] 00:00:00 00:00:00 Orders [facility] 2022-07-16 2022-07-16 Refill Taylor Vidal [facility] [id number] 00:00:00 00:00:00 [facility] 2022-07-16 2022-07-16 Refill Taylor Vidal [facility] [id number] 00:00:00 00:00:00 [facility] 2022-07-15 2022-07-15 Orders Marlene, [facility] [id number] 00:00:00 00:00:[address] [facility] 2022-07-15 2022-07-15 Orders Marlene, [facility] [id number] 00:00:00 00:00:[address] [facility] 2022-07-14 2022-07-14 Office EL Marlene, [facility] [id number] 15:30:00 16:51:[address] [facility] 2022-07-14 2022-07-14 Office Marlene, [facility] [id number] 15:30:00 16:51:[address] [facility] 2022-07-01 2022-07-01 Leela Odom [facility] [id number] 00:00:00 00:00:00 Only [facility] 2022-07-01 2022-07-01 Leela Odom [facility] [id number] 00:00:00 00:00:00 Only [facility] 2022-06-30 2022-06-30 Outpatient EL TAYLOR VIDAL [facility] [id number] 00:00:00 00:00:00 [facility] 2022-06-16 2022-06-16 RefTaylor Lay [facility] [id number] 00:00:00 00:00:00 [facility] 2022-06-16 2022-06-16 Refmelvin Vidal Taylor [facility] [id number] 00:00:00 00:00:00 [facility] 2022-05-28 2022-05-28 Office EL Taylor Vidal [facility] [id number] 16:00:00 16:45:16 Visit [facility] 2022-05-28 2022-05-28 Office Young, Taylor [facility] [id number] 16:00:00 16:45:16 Visit [facility] 2022-05-22 2022-05-22 Refill Young, Taylor [facility] [id number] 00:00:00 00:00:00 [facility] 2022-05-22 2022-05-22 Refill Young, Taylor [facility] [id number] 00:00:00 00:00:00 [facility] 2022-05-06 2022-05-06 Refill Young, Taylor [facility] [id number] 00:00:00 00:00:00 [facility] 2022-05-06 2022-05-06 Refill Young, Taylor [facility] [id number] 00:00:00 00:00:00 [facility] 2022-04-14 2022-04-14 Refill Young, Taylor [facility] [id number] 00:00:00 00:00:00 [facility] 2022-04-14 2022-04-14 Refill Young, Taylor [facility] [id number] 00:00:00 00:00:00 [facility] 2022-03-25 2022-03-25 Out[address] SALEEM [facility] [id number] 00:00:00 00:00:00 [facility] 2022-03-04 2022-03-04 Outpatient [address]IN SALEEM [facility] [id number] 00:00:00 00:00:00 [facility] 2022-02-25 2022-02-[address]U [facility] [id number] 00:00:00 00:00:00 [facility] 2022-02-01 2022-02-01 Refill Young, Taylor [facility] [id number] 00:00:00 00:00:00 [facility] 2022-02-01 2022-02-01 Taylor Arambula [facility] [id number] 00:00:00 00:00:00 [facility] 2022-01-28 2022-01-28 Outpatient EL STIVEN, [facility] [id number] 00:00:00 00:00:00 [facility] 2022-01-27 2022-01-27 Telephone Charles, [facility] [id number] 00:00:00 00:00:00 [facility] [place] 2022-01-27 2022-01-27 Telephone Charlest, [facility] [id number] 00:00:00 00:00:00 [facility] [place] [place] [facility] 2022-01-22 2022-01-22 [facility] [id number] 09:47:03 23:59:00 Encounter [facility] 2022-01-22 2022-01-22 [facility] [id number] 09:47:03 23:59:00 Encounter [facility] 2022-01-22 2022-01-22 Outpatient [facility] [id number] 09:47:03 23:59:00 DUNN 2022-01-22 2022-01-22 [facility] [id number] 09:45:45 09:46:00 Encounter [facility] 2022-01-22 2022-01-22 [facility] [id number] 09:45:45 09:46:00 Encounter [facility] 2022-01-22 2022-01-22 Outpatient [facility] [id number] [facility] 09:45:45 09:46:00 DUNN 2022-01-21 2022-01-21 [facility] [id number] 00:00:00 00:00:00 Only [facility] [place] [place] [facility] 2022-01-21 2022-01-21 Telephone [facility], [facility] [id number] 00:00:00 00:00:00 [facility] [place] 2022-01-21 2022-01-21 Outside [facility], [facility] [id number] 00:00:00 00:00:00 Orders [facility] [place] [place] [facility] 2022-01-21 2022-01-21 Orders [facility] [id number] 00:00:00 00:00:00 Only [facility] [place] 2022-01-21 2022-01-21 [facility] [id number] 00:00:00 00:00:00 [facility] [place] 2022-01-21 2022-01-21 Outside [facility], [facility] [id number] 00:00:00 00:00:00 Orders [facility] [place] 2022-01-14 2022-01-14 [facility] [id number] 14:50:13 23:59:00 Encounter [facility] 2022-01-14 2022-01-14 [facility] [id number] 14:50:13 23:59:00 Encounter [facility] 2022-01-14 2022-01-14 Outpatient SHIRIN SALEEM MEGHA [facility] [id number] [facility] 14:50:13 23:59:00 DUNN 2022-01-13 2022-01-13 [address] YU [facility] [id number] 00:00:00 00:00:00 [facility] 2022-01-10 2022-01-10 Refill Young, Taylor [facility] [id number] 00:00:00 00:00:00 [facility] 2022-01-10 2022-01-10 Refill Young, Taylor [facility] [id number] 00:00:00 00:00:00 [facility] 2022-01-07 2022-01-07 Refill Young, Taylor [facility] [id number] 00:00:00 00:00:00 [facility] 2022-01-07 2022-01-07 Refill Young, Taylor [facility] [id number] 00:00:00 00:00:00 [facility] 2022-01-05 2022-01-05 Refill Young, Taylor [facility] [id number] 00:00:00 00:00:00 [facility] 2022-01-05 2022-01-05 Refill Young, Taylor [facility] [id number] 00:00:00 00:00:00 [facility] 2021-12-24 2021-12-24 Office EL Young, Taylor Moncho [facility] [id number] 09:00:00 09:28:47 Visit St[facility] 2021-12-24 2021-12-24 Office Young, Taylor Leigh [facility] [id number] 09:00:00 09:28:47 Visit Stiven [facility] 2021-12-18 2021-12-18 Outpatient SHIRIN SALEEM [facility] [id number] 00:00:00 00:00:00 [facility] 2021-11-12 2021-11-12 Outpatient SHIRIN SALEEM [facility] [id number] 00:00:00 00:00:00 [facility] 2021-10-15 2021-10-15 Outpatient SCHAHAILEYT, [facility] [id number] 00:00:00 00:00:00 [facility] 2021-10-08 2021-10-08 Orders Lei [facility] [id number] 00:00:00 00:00:00 Only [facility] 2021-10-08 2021-10-08 Orders Lei [facility] [id number] 00:00:00 00:00:00 Only [facility] 2021-09-09 2021-09-09 Office Young, Taylor [facility] [id number] 14:40:00 16:36:10 Visit [facility] 2021-09-09 2021-09-09 Office Young, Taylor [facility] [id number] 14:40:00 16:36:10 Visit [facility] 2021-09-09 2021-09-[address] [facility] [id number] [facility] 00:00:00 00:00:00 [facility] 2021-09-09 2021-09-[address] [facility] [id number] [facility] 00:00[facility]00 00:00:00 [facility] 2021-08-28 2021-08-28 Office Young, Taylor [facility] [id number] 15:00:00 16:25:39 Visit [facility] 2021-08-28 2021-08-28 Office Young, Taylor [facility] [id number] 15:00:00 16:25:39 Visit [facility] 2021-08-28 2021-08-[address] [facility] [id number] [facility] 00:00:00 00:00:00 [facility] 2021-08-28 2021-08-[address] [facility] [id number] [facility] 00:00:00 00:00:00 [facility] 2014-11-09 2014-11-10 OBS [facility] [id number] Memoria 17:23:00 15:00:00 Observjose f Atkins The 00 l n Patient [facility] 2014-11-09 2014-11-10 OBS [facility] [id number] Memoria 17:23:00 15:00:00 Observjose f tAkins The 00 l n Patient [facility] 2014-11-09 2014-11-10 Outpatient Bryan, [id number] 12:23:00 10:00:00 Nitesh Sung [id number] 01 Results Test Description Test Time Test Comments Results Result [facility] e Comments MM, DIGITAL MAMMO, 2022-07-29 Reason for DIAGNOSTIC, WITH 15:25:00 Exam:->abnormal SHAYE, LEFT mammogram [facility] INCLUDING CAD Location: For [facility] CENTERName: Only->JOSE B[place]OP [place] : 1965 Sex: Hospital F MR N#: [id number] - MM, DIGITAL MAMMO, DIAGNOSTIC, WITH SHAYE, LEFT INCLUDING CAD UNILATERAL LEFT DIGITAL DIAGNOSTIC MAMMOGRAM 3D/2D WITH CAD: 07/29/2022omparison is made to exams dated: 01/14/2022 mammogram and 01/22/2022 mammogram - [facility]. The tissue of left breast is heterogeneously [...] Comme nts POC Glucose (test code = 1868104) 108 mg/dL 70-110 [facility] [id number] 16:35:00 Test Item Value Reference Range Interpretation Comments POC Glucose (test code = 9742117) 108 mg/dL 70-110 [facility] glycated hemoglobin, [id number] 16:33:00 Test Item Value Reference Range Interpretation Comments Hemoglobin A1C (test code = 4548-4) 6.6 % [facility] glycated hemoglobin, [id number] 16:33:00 Test Item Value Reference Range Interpretation Comments Hemoglobin A1C (test code = 4548-4) 6.6 % [facility], BREAST, UNILATERAL, [id number] 11:50:00 Diagnostic workup per radiologist?->YesReason for Exam:->[facility] : 1965 Sex: FMRN#: [id number] - MM, U/S, BREAST, UNILATERAL, LEFT LIMITED ULTRASOUND OF LEFT BREAST AND AXILLA: 01/22/2022omparison is made to exam dated: 01/14/2022 mammogram - [facility]. The tissue of left breast is heterogeneously [...] with the patient.Oneyda Hurst M.D. as/:01/22/2022 11:50:27 Chief Customer Officer: Karen Banks [facility] Ultrasound BI-RADS: 3 Probably benign [id number] Electronically signed by: Citlalli TAM 01/22/2022 11:50 AM MM, DIGITAL MAMMO, DIAGNOSTIC, WITH SHAYE, LEFT INCLUDING [id number] 11:49:00 Diagnostic workup per radiologist?->YesReason for Exam:->Abnormal [facility]ogramVA [facility] : 1965 Sex: FMRN#: [id number] - MM, DIGITAL MAMMO, DIAGNOSTIC, WITH SHAYE, LEFT INCLUDING CAD UNILATERAL LEFT DIGITAL DIAGNOSTIC MAMMOGRAM 3D/2D WITH CAD: 01/22/2022omparison is made to exam dated: 01/14/2022 mammogram - [facility]. The tissue of left breast is heterogeneously [...] DIGITAL, MAMMO, SCREENING, WITH SHAYE, BILATERAL INCLUDING [id number] 16:16:00Diagnostic workup per radiologist?->YesReason for Exam:->[facility] 1965 Sex: FMRN#: [id number] - MM, DIGITAL, MAMMO, SCREENING, WITH SHAYE, [...] Current study was also evaluated with a ComputerAided Detection (CAD) system. Broad areas of distortion are noted from the previous bilateral breastreduction. Postoperative changes in the right breast. Postoperative [...] 0 Mammogram BI-RADS: 0 Indeterminate Comprehensive metabolic [id number] 14:11:00 Test Item Value Reference Range Interpretation Comments Glucose, Serum (test 129 mg/dL 65-99 H code = 20101021) BUN (test code = 11 mg/dL 6-24 20101022) Creatinine, Serum 0.76 mg/dL 0.57-1.00 (test code = 7747738) EGFR (test code = 91 mL/min/1.73 >59 2209960277) BUN/Creatinine Ratio 14 9-23 (test code = 1581605) Sodium, Serum (test 142 mmol/L 134-144 code = 7625588) Potassium, Serum 5.7 mmol/L 3.5-5.2 H (test code = 9252966) Chloride, Serum (test 107 mmol/L 96-106 H [...] reference range : 0 - 32 IU/L. Th e reference range was not used to interpret this result as normal/abnormal . EVER (test code = EVER) Performed at: [facility] [id number] Director: Clayton Perez MD, Phone: [phone] Lab Interpretation Abnormal (test code = 58944-6) [facility] [id number] 14:11:00 Test Item Value Reference Range Interpretation Comments Cholesterol, Total (test 203 mg/dL 100-199 H code = 2093-3) Triglycerides (test code 154 mg/dL 0-149 H = 2571-8) HDL Cholesterol (test 56 mg/dL >39 code = 2085-9) VLDL Cholesterol Jose 27 mg/dL 5-40 (test code = 97108-9) LDL Calculated (test code 120 mg/dL 0-99 H = 27610-4) EVER (test code = EVER) Performed at: - [address] [id number] Director: Clayton Perez MD, Phone: [phone] Lab Interpretation (test Abnormal code = 06739-6) [facility] [id number] 14:11:00 Test Item Value Reference Range Interpretation Comments Hemoglobin A1c (test 6.8 % 4.8-5.6 H Predia betes: code = 4548-4) 5.7 - 6.4 Diabetes: >6.4 Glycemic control for adults with diabetes: <7.0 EVER (test code = EVER) Performed at: [address] [place] [address] [id number] Director: Clayton Perez MD, Phone: [phone] Lab Interpretation Abnormal (test code = 02837-4) [id number] 14:11:00 Test Item Value Reference Range Interpretation Comments TSH (test code 3.870 See_Comment [Automated m essage] = ) The system [employer] h generated this result transmit ian reference range : 0.450 - 4.50 uI U/mL. The reference r karli was not used to interpret this result as normal/abnormal . EVER (test code Performed at: - = EVER) [address] [id number] Director: Clayton Perez MD, Phone: [phone] [facility]CBC with platelet count + automated [id number] 14:11:00 Test Item Value Reference Range Interpretation [...] EVER (test code = EVER) Performed at: [facility] [id number] Director: Clayton Perez MD, Phone: [phone] Lab Interpretation Abnormal (test code = 57113-0) [facility] HospitalComprehensive metabolic [id number] 14:11:00 Test Item Value Reference Range Interpretation Comments Glucose, Serum (test 129 mg/dL 65-99 H code = 8316683) BUN (test code = 11 mg/dL 6-24 20101022) Creatinine, Serum 0.76 mg/dL 0.57-1.00 (test code = 7023055) EGFR (test code = 91 mL/min/1.73 >59 7389408292) BUN/Creatinine Ratio 14 9-23 (test code = 8226613) Sodium, Serum (test 142 mmol/L 134-144 code = 5495069) Potassium, Serum 5.7 mmol/L 3.5-5.2 H (test code = 1623180) Chloride, Serum (test 107 mmol/L 96-106 H code = 1808464) Carbon Dioxide, Total 23 mmol/L 20-29 (test code = ) Calcium, Serum (test 9.8 mg/dL 8.7-10.2 code = 3478053) Protein, Total, Serum 6.8 g/dL 6.0-8.5 (test code = 20101026) Albumin, Serum (test 4.3 g/dL 3.8-4.9 code = 1960243) Globulin, Total (test 2.5 g/dL 1.5-4.5 code = 0041570) A/G Ratio (test code 1.7 1.2-2.2 = 8142712) Bilirubin, Total 0.4 mg/dL 0.0-1.2 (test code = 6502785) Alkaline Phosphatase, 113 See_Comment [Auto mated S (test code = message] The 68-6) system which generated this result transmitted reference [...] reference range : 0 - 32 IU/L. Th e reference range was not used to interpret this result as normal/abnormal . EVER (test code = EVER) Performed at: [facility] [id number] Director: Clayton Perez MD, Phone: [phone] Lab Interpretation Abnormal (test code = 17713-3) [facility] Hospital[facility] [id number] 14:11:00 Test Item Value Reference Range Interpretation Comments Cholesterol, Total (test 203 mg/dL 100-199 H code = 3-3) Triglycerides (test code 154 mg/dL 0-149 H = 2571-8) HDL Cholesterol (test 56 mg/dL >39 code = 5-9) VLDL Cholesterol Jose 27 mg/dL 5-40 (test code = 48429-1) LDL Calculated (test code 120 mg/dL 0-99 H = 34071-8) EVER (test code = EVER) Performed at: 01 - [address] [id number] Director: Clayton Perez MD, Phone: [phone] Lab Interpretation (test Abnormal code = 79980-3) [facility] Hospital[facility] [id number] 14:11:00 Test Item Value Reference Range Interpretation Comments Hemoglobin A1c (test 6.8 % 4.8-5.6 H Predia betes: code = 4548-4) 5.7 - 6.4 Diabetes: >6.4 Glycemic control for adults with diabetes: <7.0 EVER (test code = EVER) Performed at: - [facility] [id number] Director: Clatyon Perez MD, Phone: [phone] Lab Interpretation Abnormal (test code = 76158-8) [facility] 14:11[facility]00 Test Item Value Reference Range Interpretation Comments TSH (test code 3.870 See_Comment [Automated m essage] = ) The system whic h generated this result transmit ian reference range : 0.450 - 4.50 uI U/mL. The reference r karli was not used to interpret this result as normal/abnormal . [facility] (test code Performed at: - = EVER) Lab[address] [id number] Director: Clayton Perez MD, Phone: [phone] [facility]CBC with [facility] count + automated [id number] 14:11:00 Test Item Value Reference Range Interpretation Comments WBC (test code = 8.0 See_Comment [Automated ) message] The system which generated this result transmitted reference range : 3.4 - 10.8 x10E3/uL. The reference range was not used to interpret this result as normal/abnormal . RBC (test code = 4.76 See_Comment [Automated 274-8) message] The system which generated this result [...] 0 % Not Estab. (test code = 4916050) # Immature Grans 0.0 See_Comment [Automated (test code = 9507308) messag e] The system which generated this result transmitted reference range : 0.0 - 0.1 x10E3/uL. The reference range was not used to interpret this result as normal/abnormal . [facility]ER (test code = EVER) Performed at: [address] [place] [address] [id number] Director: Clayton Perez MD, Phone: [phone] Lab Interpretation Abnormal (test code = 63689-5) [facility]RAD[facility]ST, 2 [id number] 02:19:00Reason for Exam:->COUGHFINAL REPORT INDICATION: COUGH COMPARISON: None TECHNIQUE: Frontal and lateral views of the chest. FINDINGS: Lungs and pleura: Clear lungs. No effusion.Heart and mediastinum: Normal heart size. Unremarkable mediastinal contours.Osseous structures: No acute abnormality. Mild thoracic spondylosis.Additional findings: None. IMPRESSION: No acute intrathoracic abnormality. Signed: Moncho Cueva MDRepmicheal Verified Date/Time: 06/10/2019 02:19:34 [place] [id number] 17:45:00 Test Item Value Reference Range Interpretation Comments Antibody Scrn (test Negative (11/05/14 code = Antibody Scrn) 12:45 PM) [facility] Motility Count [id number] 17:45:00 Test Item Value Reference Range Interpretation Comments ABO/Rh (test code = ABO/Rh) O NEG [facility] [id number] 17:45:00 Test Item Value Reference Range Interpretation Comments MPV (test code = MPV) 8.9 7.4-10.4 [facility] [id number] 17:45:00 Test Item Value Reference Range Interpretation Comments Hct (test code = Hct) 39.2 36.0-48.0 [facility] [id number] 17:45:00 Test Item Value Reference Range Interpretation Comments MCH (test code = MCH) 28.3 pg 27.0-31.0 [facility] Hospit[id number] 17:45:00 Test Item Value Reference Range Interpretation Comments MCV (test code = MCV) 87.9 80.0-98.0 [facility] Hospit[id number] 17:45:00 Test Item Value Reference Range Interpretation Comments Platelet (test code = Platelet) 315 133-450 [facility] HospitalMcshbeiYWEYQBIPHM6172-89-91 17:45:00 Test Item Value Reference Range Interpretation Comments RDW (test code = RDW) 16.6 11.5-14.5 [facility] HospitalNjgwfndDHTMUVFIKD9560-41-50 17:45:00 Test Item Value Reference Range Interpretation Comments MCHC (test code = MCHC) 32.2 32.0-36.0 [facility] HospitalEkhpxanUEREPPEXYM4965-02-17 17:45:00 Test Item Value Reference Range Interpretation Comments WBC (test code = WBC) 8.1 3.7-10.4 [facility] HospitalBqtksldRGVNSFBVTF5887-01-35 17:45:00 Test Item Value Reference Range Interpretation Comments RBC (test code = RBC) 4.46 4.20-5.40 [facility] HospitalH[id number] 17:45:00 Test Item Value Reference Range Interpretation Comments Hgb (test code = Hgb) 12.6 12.0-16.0 [facility] Hospit[id number] 17:45:00 Test Item Value Reference Range Interpretation Comments Basophils # (test code 0.0 See_Comment [Aut omated message] The = Basophils #) system which generated this result tra nsmitted reference range : <=0.2. The reference r karli was not used to int erpret this result as normal/abnormal . [facility] HospitalYgfoohaOOZCFWPJHN5185-00-77 17:45:00 Test Item Value Reference Range Interpretation Comments Lymphocytes # (test code = Lymphocytes 2.1 1.0-5.5 #) [facility] HospitalQarksnkSCPOLFTJNP8929-00-47 17:45:00 Test Item Value Reference Range Interpretation Comments Monocytes # (test code 0.6 See_Comment [Aut omated message] The = Monocytes #) system which generated this result tra nsmitted reference range : <=0.8. The reference r karli was not used to int erpret this result as normal/abnormal . [place] [id number] 17:45:00 Test Item Value Reference Range Interpretation Comments Eosinophils # (test code 0.1 See_Comment [A utomated message] The = Eosinophils #) system whic h generated this result tra nsmitted reference range : <=0.5. The reference r karli was not used to int erpret this result as normal/abnormal . [facility] CenterAlrjekxHFRLYBRLCL4602-23-22 17:45:00 Test Item Value Reference Range Interpretation Comments Eosinophils (test code = 1.0 See_Comment [A utomated message] The Eosinophils) system which ge nerated this result tra nsmitted reference range : <=4.0. The reference r karli was not used to int erpret this result as normal/abnormal . [facility] CenterGonxtdlTLCDNILRKX7715-90-67 17:45:00 Test Item Value Reference Range Interpretation Comments Basophils (test code = 0.1 See_Comment [Aut omated message] The Basophils) system which ge nerated this result tra nsmitted reference range : <=1.0. The reference r karli was not used to int erpret this result as normal/abnormal . [facility] CenterSgdtyozSRYPQKJIHS2462-93-77 17:45:00 Test Item Value Reference Range Interpretation Comments Segs-Bands # (test code = Segs-Bands #) 5.4 1.5-8.1 [facility] Cent[id number] 17:45:00 Test Item Value Reference Range Interpretation Comments Segs (test code = Segs) 66.6 45.0-75.0 [employer] [id number] 17:45:00 Test Item Value Reference Range Interpretation Comments Antibody Scrn (test Negative (11/05/14 code = Antibody Scrn) 12:45 PM) [facility] Motility Count [id number] 17:45:00 Test Item Value Reference Range Interpretation Comments ABO/Rh (test code = ABO/Rh) O NEG [facility] LaprtvwJVPFCMXLBV0453-64-72 17:45:00 Test Item Value Reference Range Interpretation Comments MPV (test code = MPV) 8.9 7.4-10.4 [facility] CenterJtqtlllECZWRFGYUV3870-92-33 17:45:00 Test Item Value Reference Range Interpretation Comments Hct (test code = Hct) 39.2 36.0-48.0 [facility] HospitalZyzxbnfIZLRENWITM7341-30-08 17:45:00 Test Item Value Reference Range Interpretation Comments MCH (test code = MCH) 28.3 pg 27.0-31.0 [facility] Hospit[id number] 17:45:00 Test Item Value Reference Range Interpretation Comments MCV (test code = MCV) 87.9 80.0-98.0 [facility] HospitalKheaikoDUDPWILXFF8835-64-01 17:45:00 Test Item Value Reference Range Interpretation Comments Platelet (test code = Platelet) 315 133-450 [facility] HospitalAgptobfQTRDXRBMPQ0741-54-13 17:45:00 Test Item Value Reference Range Interpretation Comments RDW (test code = RDW) 16.6 11.5-14.5 [facility] HospitalLyjkwfyHKPEJPQYNP6282-03-58 17:45:00 Test Item Value Reference Range Interpretation Comments MCHC (test code = MCHC) 32.2 32.0-36.0 [facility] HospitalRkmbrqiBBGBIODKME6958-74-45 17:45:00 Test Item Value Reference Range Interpretation Comments WBC (test code = WBC) 8.1 3.7-10.4 [facility] HospitalRnbpvdaNKDJECAQXD7497-95-84 17:45:00 Test Item Value Reference Range Interpretation Comments Lymphocytes (test code = Lymphocytes) 25.4 20.0-40.0 [facility] HospitalZyiplkwOSHCSREXHM0958-71-05 17:45:00 Test Item Value Reference Range Interpretation Comments RBC (test code = RBC) 4.46 4.20-5.40 [facility] HospitalP[id number] 17:45:00 Test Item Value Reference Range Interpretation Comments Hgb (test code = Hgb) 12.6 12.0-16.0 [facility] Hospit[id number] 17:45:00 Test Item Value Reference Range Interpretation Comments Basophils # (test code 0.0 See_Comment [Aut omated message] The = Basophils #) system which generated this result tra nsmitted reference range : <=0.2. The reference r karli was not used to int erpret this result as normal/abnormal . [facility] HospitalEdwybhjGEALOJWIUS4791-52-72 17:45:00 Test Item Value Reference Range Interpretation Comments Lymphocytes # (test code = Lymphocytes 2.1 1.0-5.5 #) [facility] Hos[id number] 17:45:00 Test Item Value Reference Range Interpretation Comments Monocytes # (test code 0.6 See_Comment [Aut omated message] The = Monocytes #) system which generated this result tra nsmitted reference range : <=0.8. The reference r karli was not used to int erpret this result as normal/abnormal . [facility] HospitalJiplwnvLSRQIDHHQT3280-43-81 17:45:00 Test Item Value Reference Range Interpretation Comments Eosinophils # (test code 0.1 See_Comment [A utomated message] The = Eosinophils #) system whic h generated this result tra nsmitted reference range : <=0.5. The reference r karli was not used to int erpret this result as normal/abnormal . [facility] HospitalAnwtrpvLLEEERCSML8046-61-74 17:45:00 Test Item Value Reference Range Interpretation Comments Eosinophils (test code = 1.0 See_Comment [A utomated message] The Eosinophils) system which ge nerated this result tra nsmitted reference range : <=4.0. The reference r karli was not used to int erpret this result as normal/abnormal . [facility] HospitalRemjshaZMXFQOQGAR5343-06-88 17:45:00 Test Item Value Reference Range Interpretation Comments Basophils (test code = 0.1 See_Comment [Aut omated message] The Basophils) system which ge nerated this result tra nsmitted reference range : <=1.0. The reference r karli was not used to int erpret this result as normal/abnormal . [facility] HospitalVexcbyaDKACBRBYSS1418-36-98 17:45:00 Test Item Value Reference Range Interpretation Comments Segs-Bands # (test code = Segs-Bands #) 5.4 1.5-8.1 [facility] Hos[id number] 17:45:00 Test Item Value Reference Range Interpretation Comments Segs (test code = Segs) 66.6 45.0-75.0 [facility] Hospit[id number] 17:45:00 Test Item Value Reference Range Interpretation Comments Monocytes (test code = Monocytes) 6.9 2.0-12.0 [facility] Hospit[id number] 17:45:00 Test Item Value Reference Range Interpretation Comments Lymphocytes (test code = Lymphocytes) 25.4 20.0-40.0 [facility] HospitalHsoyaxuTFOLFGIKLE9819-24-82 17:45:00 Test Item Value Reference Range Interpretation Comments Monocytes (test code = Monocytes) 6.9 2.0-12.0 [facility] [id number] 17:45:00 Test Item Value Reference Range Interpretation Comments U Preg (test code = U Negative (11/05/14 12:45 Preg) PM) [facility]2015-05-18 17:45:00 Test Item Value Reference Range Interpretation Comments U Preg (test code = U Negative (11/05/14 12:45 Preg) PM) [facility] CenterSecretteNanoConversion [facility] [id number] 17:45:00 Test Item Value Reference Range Interpretation Comments Antibody Scrn (test Negative (11/05/14 code = Antibody Scrn) 12:45 PM) [facility] Motility Count [id number] 17:45:00 Test Item Value Reference Range Interpretation Comments ABO/Rh (test code = ABO/Rh) O NEG [facility] Cent[id number] 17:45:00 Test Item Value Reference Range Interpretation Comments MPV (test code = MPV) 8.9 7.4-10.4 [facility] CenterImulrbuVWQNFVODJF2859-23-27 17:45:00 Test Item Value Reference Range Interpretation Comments Hct (test code = Hct) 39.2 36.0-48.0 [facility] CenterWiuhahdVYPJJRCHAB9909-07-28 17:45:00 Test Item Value Reference Range Interpretation Comments MCH (test code = MCH) 28.3 pg 27.0-31.0 [id number] 17:45:00 Test Item Value Reference Range Interpretation Comments MCV (test code = MCV) 87.9 80.0-98.0 [facility] CenterJkckrxuYVGOEIVMXN9020-73-90 17:45:00 Test Item Value Reference Range Interpretation Comments Platelet (test code = Platelet) 315 133-450 [facility] Cent[id number] 17:45:00 Test Item Value Reference Range Interpretation Comments RDW (test code = RDW) 16.6 11.5-14.5 [facility] HospitalDohxataVHVBLAHUZT7619-17-67 17:45:00 Test Item Value Reference Range Interpretation Comments MCHC (test code = MCHC) 32.2 32.0-36.0 [facility] HospitalGphuktnBMFHLJJJDR2236-35-61 17:45:00 Test Item Value Reference Range Interpretation Comments WBC (test code = WBC) 8.1 3.7-10.4 [place] [id number] 17:45:00 Test Item Value Reference Range Interpretation Comments RBC (test code = RBC) 4.46 4.20-5.40 [place] [address]-05-18 17:45:00 Test Item Value Reference Range Interpretation Comments Hgb (test code = Hgb) 12.6 12.0-16.0 [place] [id number] 17:45:00 Test Item Value Reference Range Interpretation Comments Basophils # (test code 0.0 See_Comment [Aut omated message] The = Basophils #) system which generated this result tra nsmitted reference range : <=0.2. The reference r karli was not used to int erpret this result as normal/abnormal . [place] [address]-05-18 17:45:00 Test Item Value Reference Range Interpretation Comments Lymphocytes # (test code = Lymphocytes 2.1 1.0-5.5 #) [address]05-18 17:45:00 Test Item Value Reference Range Interpretation Comments Monocytes # (test code 0.6 See_Comment [Aut omated message] The = Monocytes #) system which generated this result tra nsmitted reference range : <=0.8. The reference r karli was not used to int erpret this result as normal/abnormal . [facility] Hospit[id number] 17:45:00 Test Item Value Reference Range Interpretation Comments Eosinophils # (test code 0.1 See_Comment [A utomated message] The = Eosinophils #) system [facility] h generated this result tra nsmitted reference range : <=0.5. The reference r karli was not used to int erpret this result as normal/abnormal . [facility] HospitalXioaebvHDPIGJPDYZ4914-42-50 17:45:00 Test Item Value Reference Range Interpretation Comments Eosinophils (test code = 1.0 See_Comment [A utomated message] The Eosinophils) system which ge nerated this result tra nsmitted reference range : <=4.0. The reference r karli was not used to int erpret this result as normal/abnormal . [place] [address]-05-18 17:45:00 Test Item Value Reference Range Interpretation Comments Basophils (test code = 0.1 See_Comment [Aut omated message] The Basophils) system which ge nerated this result tra nsmitted reference range : <=1.0. The reference r karli was not used to int erpret this result as normal/abnormal . [facility] HospitalMfarmxzUSVWTWVSRV1527-23-92 17:45:00 Test Item Value Reference Range Interpretation Comments Segs-Bands # (test code = Segs-Bands #) 5.4 1.5-8.1 [facility] Hospit[id number] 17:45:00 Test Item Value Reference Range Interpretation Comments Segs (test code = Segs) 66.6 45.0-75.0 [facility] HospitalBmmyqzzCAPBVTTJOV1934-92-58 17:45:00 Test Item Value Reference Range Interpretation Comments Lymphocytes (test code = Lymphocytes) 25.4 20.0-40.0 [facility] HospitalYneuazdNBEOJSGCWK3077-29-90 17:45:00 Test Item Value Reference Range Interpretation Comments Monocytes (test code = Monocytes) 6.9 2.0-12.0 [facility]2015-05-18 17:45:00 Test Item Value Reference Range Interpretation Comments U Preg (test code = U Negative (11/05/14 12:45 Preg) PM) [facility]
[2022-08-03 02:44] LABS: SARS-COV-2 RT PCR NEGATIVE (NEGATIVE)
--- NOTE | 2022-08-03 03:03 | ER ---
Nurse's Notes [facility] Name: Kelle Rivas Age: 56 yrs Sex: Female : 1965 Arrival Date: 08/03/2022 Time: 00:42 Bed IW1 Private MD: Diagnosis: Cough Presentation: 08/03 00:49 Chief complaint: Patient states: C/o cough, states"I had 3 episodes of SOB at home ll3 throughout they day today", states cough started 10 days ago. Coronavirus screen: Vaccine status: Patient reports receiving the 2nd dose of the covid vaccine. cough unrelated to allergies, shortness of breath. Ebola Screen: No symptoms or risks identified at this time. Initial Sepsis Screen: Does the patient meet any 2 criteria? No. Patient's initial sepsis screen is negative. Does the patient have a suspected source of infection? No. Patient's initial sepsis screen is negative. Risk Assessment: Do you want to hurt yourself or someone else? Patient reports no desire to harm self or others. Onset of symptoms was August 02, 2022. 00:49 Method Of Arrival: Wheelchair ll3 00:49 Acuity: JINA 3 ll3 Triage Assessment: 00:57 General: Appears uncomfortable, Behavior is calm, cooperative. Pain: Denies pain. ll3 Neuro: Level of Consciousness is awake, alert, obeys commands, Oriented to person, place, time, situation. Respiratory: Reports shortness of breath Intermittent cough that is persistent since 10 days Airway is patent Respiratory effort is even, unlabored, Respiratory pattern is regular, symmetrical, Onset: The symptoms/episode began/occurred this morning, the patient reports symptoms have resolved. Derm: Skin is pink, warm \\T\\ dry. Historical: - Allergies: 00:57 No Known Allergies; ll3 - Home Meds: 00:57 Metformin Oral [Active]; ll3 - PMHx: 00:57 Prediabetic; ll3 - PSHx: 00:57 None; ll3 - Immunization history:: Client reports receiving the 2nd dose of the Covid vaccine. - Social history:: Smoking status: Patient denies any tobacco usage or history of. Screenin:20 [facility] ED Fall Risk Assessment (Adult) History of falling in the last 3 months, ll3 including since admission No falls in past 3 months (0 pts) Confusion or Disorientation No (0 pts) Intoxicated or Sedated No (0 pts) Impaired Gait Yes (1 pt) Mobility Assist Device Used Yes (1 pt) Altered Elimination No (0 pt) Score/Fall Risk Level 0 - 2 = Low Risk Oriented to surroundings, Maintained a safe environment, Educated pt \\T\\ family on fall prevention, incl call for assistance when getting out of bed. Abuse screen: Denies threats or abuse. Denies injuries from another. Nutritional screening: No deficits noted. Tuberculosis screening: No symptoms or risk factors identified. Vital Signs: 00:49 BP 128 / 79; Pulse 60; Resp 17; Temp 98.2(O); Pulse Ox 99% on R/A; Weight 115.67 kg ll3 (R); Height 5 ft. 2 in. (157.48 cm) (R); 00:49 Body Mass Index 46.64 (115.67 kg, 157.48 cm) ll3 ED Course: 00:42 Patient arrived in ED. ja2 00:45 David Pleitez DO is Attending Physician. ms3 00:57 Triage completed. ll3 00:57 Arm band placed on. ll3 01:46 COVID-19/FLU A+B Sent. ll3 03:02 Juwan Goldstein DO is Referral Physician. ms3 03:20 Patient has correct armband on for positive identification. Side rails up X 1. Adult w/ ll3 patient. 03:20 No provider procedures requiring assistance completed. Patient did not have IV access ll3 during this emergency room visit. Administered Medications: No medications were administered Medication: 03:21 VIS not applicable for this client. ll3 Outcome: 03:03 Discharge ordered by . ms3 03:20 Discharged to home via wheelchair, with family. ll3 03:20 Condition: stable 03:20 Discharge instructions given to patient, significant other, Instructed on discharge instructions, follow up and referral plans. medication usage, Demonstrated understanding of instructions, follow-up care, medications, Prescriptions given X 1. 03:22 Patient left the ED. ll3 Signatures: David Pleitez DO DO ms3 Lyndsay Olea2 Haylee Blackburn, RN RN ll3
--- NOTE | 2022-08-03 03:03 | EDPHYS ---
Physician Documentation [facility] Name: Kelle Rivas Age: 56 yrs Sex: Female : 1965 Arrival Date: 08/03/2022 Time: 00:42 Bed IW1 Private MD: ED Physician David Pleitez HPI: 08/03 03:03 This 56 yrs old Female presents to ER via Wheelchair with complaints of Shortness Of ms3 Breath, Cough. 03:03 56-year-old female with no past medical history presents for coughing, shortness of ms3 breath that is been ongoing since Wednesday. Patient states she has had 3 coughing episodes today that lasted for approximately 3 minutes where it is hard for her to catch her breath. Patient denies pain at this time. Patient denies nausea, vomiting, fevers, chills, sick contacts.. Historical: - Allergies: 00:57 No Known Allergies; ll3 - Home Meds: 00:57 Metformin Oral [Active]; ll3 - PMHx: 00:57 Prediabetic; ll3 - PSHx: 00:57 None; ll3 - Immunization history:: Client reports receiving the 2nd dose of the Covid vaccine. - Social history:: Smoking status: Patient denies any tobacco usage or history of. ROS: 03:03 Constitutional: Negative for fever, and chills. Neck: Negative for injury, pain, and ms3 swelling, Cardiovascular: Negative for chest pain, and palpitations. 03:03 Skin: Negative for injury, rash, and discoloration. 03:03 Respiratory: Positive for cough, shortness of breath. 03:03 All other systems are negative. Exam: 03:03 Constitutional: This is a well developed, well nourished patient who is awake, alert, ms3 and in no acute distress. Head/Face: Normocephalic, atraumatic. Neck: Trachea midline, no cervical lymphadenopathy. Supple, full range of motion without nuchal rigidity, or vertebral point tenderness. No Meningismus. Chest/axilla: Normal chest wall appearance and motion. Nontender with no deformity. Cardiovascular: Regular rate and rhythm with a normal S1 and S2. No gallops, murmurs, or rubs. Normal PMI, no JVD. No pulse deficits. Respiratory: Lungs have equal breath sounds bilaterally, clear to auscultation and percussion. No rales, rhonchi or wheezes noted. No increased work of breathing, no retractions or nasal flaring. Abdomen/GI: Soft, non-tender, with normal bowel sounds. No distension or tympany. No guarding or rebound. No evidence of tenderness throughout. Skin: Warm, dry with normal turgor. Normal color with no rashes, no lesions, and no evidence of cellulitis. MS/ Extremity: Pulses equal, no cyanosis. Neurovascular intact. Full, normal range of motion. Vital Signs: 00:49 BP 128 / 79; Pulse 60; Resp 17; Temp 98.2(O); Pulse Ox 99% on R/A; Weight 115.67 kg ll3 (R); Height 5 ft. 2 in. (157.48 cm) (R); 00:49 Body Mass Index 46.64 (115.67 kg, 157.48 cm) ll3 MDM: 01:01 Patient medically screened. ms3 03:03 Differential diagnosis: Bronchitis pneumonia, COVID vs Flu. Data reviewed: vital signs, ms3 nurses notes, lab test result(s), radiologic studies, and as a result, I will discharge patient. Independent interpretation of the following test(s) in the Emergency Department X-Ray: My interpretation is CXR image reviewed by me: Negative. Counseling: I had a detailed discussion with the patient and/or guardian regarding: the historical points, exam findings, and any diagnostic results supporting the discharge/admit diagnosis, lab results, radiology results, the need for outpatient follow up. ED course: Discussed chest x-ray, negative flu and COVID with patient. Patient to follow-up with Dr. Goldstein in 2 to 3 days. Patient understands and agrees with plan. All questions were answered. Return precautions discussed to include worsening symptoms, or any other concerns. On reevaluation patient is alert and oriented x4, no apparent distress, nontoxic, speaking full sentences.. 08/03 01:02 Order name: COVID-19/FLU A+B ms3 08/03 02:44 Order name: COVID-19/FLU A+B; Complete Time: 02:53 EDMS 08/03 01:02 Order name: Chest Pa And Lat (2 Views) XRAY ms3 Administered Medications: No medications were administered Disposition Summary: 08/03/22 03:03 Discharge Ordered Location: Home ms3 Condition: Stable ms3 Diagnosis - Cough ms3 Followup: ms3 - With: Juwan Goldstein DO - When: 2 - 3 days - Reason: Recheck today's complaints Discharge Instructions: - Discharge Summary Sheet ms3 - Cough, Adult ms3 Forms: - Medication Reconciliation Form ms3 - Thank You Letter ms3 - Antibiotic Education ms3 - Prescription Opioid Use ms3 Prescriptions: - albuterol sulfate 90 mcg/actuation Inhalation HFA aerosol inhaler - inhale 2 puff by INHALATION route every 4-6 hours; 1 Pump; Refills: 0, Product ms3 Selection Permitted Signatures: Dispatcher [employer] David Lawton DO DO ms3 Haylee Blackburn RN RN ll3
[2022-08-03 03:31] VITALS: BP 128/79; TEMP 98.2; O2SAT 99
--- NOTE | 2022-08-04 11:42 | RAD REPORT ---
EXAM DESCRIPTION: XR Chest, 2 Views CLINICAL HISTORY: The patient is 56 years old and is Female; COUGH TECHNIQUE: Frontal and lateral views of the chest. COMPARISON: No relevant prior studies available. FINDINGS: LUNGS: Unremarkable. No consolidation. PLEURAL SPACE: Unremarkable. No pneumothorax. HEART: Unremarkable. No cardiomegaly. MEDIASTINUM: Unremarkable. BONES/JOINTS: Unremarkable. UPPER ABDOMEN: Unremarkable as visualized. IMPRESSION: No acute cardiopulmonary process. Electronically signed by: Fanny Kraus MD 08/03/2022 2:51 AM STOCK TRACER Due to temporary technical issues with the PACS/[employer] reporting system, reports are being signed by the in house radiologists without review as a courtesy to insure prompt reporting. The interpreting radiologist is fully responsible for the content of the report. Due to temporary technical issues with the PACS/[employer] reporting system, reports are being signed by the in house radiologists without review as a courtesy to insure prompt reporting. The interpreting radiologist is fully responsible for the content of the report.
== END 2022-08-03 03:22 | disposition home or self-care (01) ==
LOC: ER 00:38
DX: R05.9 Cough, unspecified (principal); R06.02 Shortness of breath; R73.03 Prediabetes; Z20.822 Contact with and (suspected) exposure to COVID-19
CPT/HCPCS: 0240U; 71046; 99283